=== PATIENT | female | born 1985 | race Caucasian/White ===

== ENCOUNTER 2022-10-19 16:30 | Inpatient (IN) ==
[2022-10-19] MEDS ORDERED: SODIUM CHLORIDE 0.9% 500 ML IV STA (16:37)
[2022-10-19] MEDS ORDERED: SODIUM CHLORIDE 0.9% 250 ML IV PRN (16:37)
[2022-10-19 16:51] LABS: iSTAT Creatinine 0.6 mg/dl (0.6-1.3); iSTAT Hemoglobin 7.8 g/dl (12.0-16.0); iSTAT Ionized Calcium 1.06 mmol/l (1.12-1.32); iSTAT Potassium 3.8 mmol/L (3.3-5.0)
[2022-10-19] MEDS ORDERED: CALCIUM GLUCONATE 1,000 MG/60 ML BAG IV STA (16:58)
--- NOTE | 2022-10-19 16:58 | Emergency Department Note ---
Impression & Plan Postoperative hemorrhagic shock, Status post cholecystectomy, Transaminitis, Leukocytosis ED Provider Note NAME: ANUEL JENKINS AGE: 37 SEX: F : 1985 ARRIVES VIA: Ambulance INFORMANT: Patient, ED PROVIDER(S): William Liang MD CHIEF COMPLAINT: Hypotension, tachycardia, abdominal pain MEDICAL DECISION MAKING: Patient presents due to concern of possible postoperative hemorrhage. The patient is pale tachycardic and hypotensive. I did perform a bedside FAST exam which was positive for fluid in the abdomen. The patient did have a remote history of pericardial effusion and when asked the patient states that she had recently seen cardiology and was told that there were no significant issues. The patient does have potentially trace pericardial effusion but certainly not tamponade physiology. Patient was ordered 2 units of uncrossed O- blood to be given immediately additional IV lines were placed. A Garcia was placed blood work was obtained IVs were established patient was ordered a small amount of IV fluids given the patient's tachycardia and hypotension prior to receiving her blood. Patient was ordered CT abdomen pelvis as well as CT angiography of the chest. I did immediately speak with on-call general surgeon Dr. George. He also did evaluate the patient. In consultation with him also did discuss case with on-call engraver wood Dr. Darnell. Patient's initial [id number] did show a hemoglobin of 7.8. Patient does have a white count of 19 likely reactive from surgery and bleeding. I do not believe that this is sepsis and believe that this is most likely from the patient's hemorrhage. Hemoglobin 8.2. I did review patient's most recent outpatient blood work from October 15 which showed hemoglobin 12.4. This is an acute change. Platelet count 189 kidney function is unremarkable. Patient does have mild transaminitis noted but this could be secondary to the patient's recent procedure. Glucose of 284. The patient is not DKA. Urinalysis does not show evidence of obvious infection. COVID-negative. I did speak with radiologist Dr. Pastrana with regard to the patient's imaging that was ordered. He did state that there was no obvious active extravasation but did notice the blood in the abdomen. CT angiography chest was negative. I did inform the patient of the findings as well as the patient's at bedside. I also did inform the general surgeon Dr. George about CAT scan I did discuss it with him. He would like the patient to be transfused but does not recommend taking the patient to the operating room at this time. I did convey this to the on-call hospitalist service as well as the engraver wood. I did speak the on-call hospitalist service EREN Ocampo and the patient was admitted by Dr. Velázquez to the intensive care unit who would also be under the care of Dr. Brewer. Critical Care: I have personally spent 90 minutes of critical care time in direct management of this patient. This includes bedside care, interpretation of diagnostic studies, and testing, discussion with consultants, patient, and family members, and other require inpatient management activities. This 90 minutes is in excess of all separately billable procedures. Procedures: Limited Point of Care FAST Ultrasound performed by me: Indication: Hypotension and tachycardia Findings: Limited cardiac ultrasonography via subxiphoid and parasternal long v iew showed cardiac wall motion activity, potentially trace pericardial effusion fluid but no tamponade. L Limited abdominal ultrasound revealed free fluid within the left upper quadrant as well as in the lower abdomen no obvious fluid noted in the right upper quadrant. Impression: Positive FAST exam Prior /Outside records reviewed: I did review the patient's most recent outpatient blood work completed October 15 which showed hemoglobin of 12.4 Differential diagnosis: Postoperative bleeding, hemorrhagic shock, sepsis, dehydration, PE, cardiogenic shock among others were considered Diagnostics, as interpreted by me: ECG: None Cardiac monitoring: An order was placed for continuous cardiac monitoring. The monitor shows a rate of 135 with tachycardic and regular rhythm. Patient was placed on pulse oximetry Medical decision rules: None Imaging studies: See below HPI: Patient presents from [facility] is a postop cholecystectomy completed by Dr. Mendoza earlier today due to concern for persistent hypotension and tachycardia. Patient states that she has had intermittent chest discomfort but does not complain of shortness of breath. The patient does have abdominal pain. The patient had received IV fluids prior to arrival but is not yet urinated. Patient does not take any blood thinning medications and no antiplatelets. The patient denies any falls or trauma. PAST MEDICAL HISTORY: See Below PAST SURGICAL HISTORY: See Below SOCIAL HISTORY: See Below HOME MEDICATIONS: See Below ALLERGIES: See Below VITALS: See Below PHYSICAL EXAMINATION: GENERAL: Ill in appearance, pale, moderate distress, wearing glasses EYE EXAM: Normal conjunctiva. PERRL, no anisocoria and EOM's grossly intact w/o pain. NECK: Supple, no nuchal rigidity, no adenopathy, non-tender. No signs of meningismus. FROM of the neck with good chin to chest and neck extension. No stridor. LUNGS: Clear to auscultation. Normal chest wall mechanics. HEART: Tachycardic and regular, no MRG. ABDOMEN: Postoperative lap sites covered with bandages, moderate diffuse discomfort throughout. BACK: No CVA TTP. SKIN: No rashes and no bruising. UPPER EXTREMITIES: Upper extremities are grossly normal. LOWER EXTREMITIES: Grossly normal, no edema. NEURO EXAM: A&O x3, cranial nerves II-XII grossly intact, normal speech, moves all 4 extremities. Past Med/Surg History Medical History Hypothyroidism Obesity Postoperative hemorrhage Surgical History H/O hernia repair H/O wisdom tooth extraction History of appendectomy Status post cholecystectomy Status post hysterectomy Social History Smoking Status: Never smoker Preferred Language: Cymro Feels Safe at Home: Yes Allergies Allergies Allergy/AdvReac Type Severity Reaction Status Date / Time [id number] Allergy Unknown NKDA Uncoded 04/25/15 21:02 Home Meds Home Medications Medication Instructions Recorded Confirmed levothyroxine 75 mcg tablet 75 mcg PO DAILY 10/19/22 10/19/22 liraglutide (weight loss) 3 mg/0.5 3 mg subcut DAILY 10/19/22 10/19/22 mL (18 mg/3 mL) subcut pen injector (Saxenda) omeprazole 40 mg capsule,delayed 40 mg PO HS 10/19/22 10/19/22 release Results & Data (ED) Vital Signs Vital Signs - 24 hr 10/19/22 16:38 10/19/22 16:44 10/19/22 16:45 Temperature 36.6 C Temperature Source Oral Pulse Rate 134 H Pulse Rate [Apical] 120 H Pulse Rate from SpO2 Sensor Respiratory Rate 20 20 Respiratory Effort / Characteristics Non-Labored Non-Labored Respiratory Depth Normal Normal Blood Pressure 117/74 Blood Pressure [Right Arm] 117/74 Blood Pressure Mean 88 Blood Pressure Mean [Right Arm] 88 Pulse Oximetry 100 99 99 Oxygen Delivery Method Room Air Room Air Room Air Oxygen Flow Rate Sepsis New/Unexplained Change in Mental Status No Sepsis Action Taken by Nursing No Action Required 10/19/22 16:36 10/19/22 16:38 10/19/22 17:11 Temperature 36.4 C L Temperature Source Oral Pulse Rate 130 H 132 H 150 H Pulse Rate [Apical] Pulse Rate from SpO2 Sensor 132 H Respiratory Rate 21 20 Respiratory Effort / Characteristics Respiratory Depth Blood Pressure 108/68 Blood Pressure [Right Arm] Blood Pressure Mean 81 Blood Pressure Mean [Right Arm] Pulse Oximetry 100 99 Oxygen Delivery Method Oxygen Flow Rate Sepsis New/Unexplained Change in Mental Status Sepsis Action Taken by Nursing 10/19/22 17:19 10/19/22 17:25 10/19/22 17:30 Temperature Temperature Source Pulse Rate 132 H 126 H 123 H Pulse Rate [Apical] Pulse Rate from SpO2 Sensor Respiratory Rate 20 18 18 Respiratory Effort / Characteristics Respiratory Depth Blood Pressure 97/57 L 97/57 L 113/80 Blood Pressure [Right Arm] Blood Pressure Mean 70 70 91 Blood Pressure Mean [Right Arm] Pulse Oximetry 92 95 95 Oxygen Delivery Method Oxygen Flow Rate 4 Sepsis New/Unexplained Change in Mental Status Sepsis Action Taken by Nursing 10/19/22 17:53 10/19/22 17:45 10/19/22 18:09 Temperature Temperature Source Pulse Rate 106 H 115 H Pulse Rate [Apical] 113 H Pulse Rate from SpO2 Sensor Respiratory Rate 18 18 18 Respiratory Effort / Characteristics Non-Labored Respiratory Depth Normal Blood Pressure 120/62 103/65 Blood Pressure [Right Arm] 120/62 Blood Pressure Mean 81 77 Blood Pressure Mean [Right Arm] 81 Pulse Oximetry 100 100 99 Oxygen Delivery Method Nasal Cannula Oxygen Flow Rate 4 4 Sepsis New/Unexplained Change in Mental Status Sepsis Action Taken by Nursing 10/19/22 18:20 10/19/22 18:29 Temperature Temperature Source Pulse Rate 116 H 105 H Pulse Rate [Apical] Pulse Rate from SpO2 Sensor Respiratory Rate 18 18 Respiratory Effort / Characteristics Respiratory Depth Blood Pressure 102/65 110/59 L Blood Pressure [Right Arm] Blood Pressure Mean 77 76 Blood Pressure Mean [Right Arm] Pulse Oximetry 99 99 Oxygen Delivery Method Oxygen Flow Rate 2 Sepsis New/Unexplained Change in Mental Status Sepsis Action Taken by Care Home Medications Current Medication List: was personally reviewed by ga Laboratory Data Attestation: I reviewed the patient's lab results. 10/19/22 16:35 10/19/22 16:35 Lab Results 10/19/22 10/19/22 10/19/22 Range/Units 16:35 16:35 16:35 WBC 19.66 H (4.8-10.8) K/ul RBC 2.62 L (4.20-5.40) M/uL Hgb 8.2 L (12.0-16.0) g/dl POC Hgb (12.0-16.0) g/dl Hct 25.0 L (37.0-47.0) % POC Hct (37-47) % MCV 95.4 (80.0-100.0) fL MCH 31.3 (25.0-34.0) pg MCHC 32.8 (32.0-36.0) g/dL RDW Std Deviation 47.6 H (36.4-46.3) fL RDW Coeff of Nicky 13.8 (11.5-14.5) % Plt Count 189 (130-400) K/uL MPV 9.5 (9.4-12.4) fL Immature Gran % (Auto) 0.6 % Neut % (Auto) 89.6 % Lymph % (Auto) 5.1 % Camp % (Auto) 4.5 % Eos % (Auto) 0.1 % Baso % (Auto) 0.1 % Neut # (Auto) 17.63 H (1.40-6.50) K/uL Lymph # (Auto) 1.01 L (1.2-3.4) K/uL Camp # (Auto) 0.88 H (0.11-0.59) K/uL Eos # (Auto) 0.01 (0-0.50) K/uL Baso # (Auto) 0.02 (0-0.2) K/uL Immature Gran # (Auto) 0.11 (0.01-0.20) K/uL PT 11.1 (9.0-12.0) Seconds INR 1.0 (0.9-1.1) APTT 23.1 (21.0-31.0) Seconds PTT Ratio 0.8 Fibrinogen 261 (184-400) mg/dl POC Sodium (135-144) mmol/L Sodium 136 (136-145) mmol/L POC Potassium (3.3-5.0) mmol/L Potassium 3.8 (3.5-5.1) mmol/L POC Chloride (101-112) mmol/L Chloride 106 (98-107) mmol/L Carbon Dioxide 24 (21-32) mmol/L POC Total CO2 (24-31) mmol/L Anion Gap 6 (3-11) POC Anion Gap (16-25) mmol/L POC BUN (7-18) mg/dl BUN 11 (6-23) mg/dl Creatinine 0.74 (0.6-1.2) mg/dl POC Creatinine (0.6-1.3) mg/dl Est Cr Clr Drug Dosing Not Reportable Est GFR ( Amer) 120.8 ml/min Est GFR (Non-Af Amer) 104.2 ml/min BUN/Creatinine Ratio 14.9 (10-20) Glucose 284 H (70-99(Fasting)) mg/dl POC Glucose (other) (70-99) mg/dl Calcium 7.3 L (8.5-10.1) mg/dl POC Ioniz Calcium Micky (1.12-1.32) mmol/l Total Bilirubin 0.4 (0.2-1.0) mg/dl AST 72 H (13-39) U/L ALT 212 H (7-52) U/L Alkaline Phosphatase 153 H (34-104) U/L Troponin I High Sens 5.4 (0-14) pg/ml Total Protein 4.8 L (6.0-8.3) gm/dl Albumin 3.2 L (3.4-5.0) gm/dl Globulin 1.6 L (2.5-4.0) gm/dl Albumin/Globulin Ratio 2.0 (0.9-2) Lipase 14 (11-82) U/L Urine Color Urine Appearance (Clear) Urine pH (4.5-7.5) Ur Specific Gays (1.000-1.030) Urine Protein (Negative) Urine Glucose (UA) (Negative) Urine Ketones (Negative) Urine Blood (Negative) Urine Nitrite (Negative) Urine Bilirubin (Negative) Urine Urobilinogen (Negative) Ur Leukocyte Esterase (Negative) SARS-CoV-2, RNA, NAAT (NEGATIVE) Blood Type Antibody Screen Crossmatch 10/19/22 10/19/22 10/19/22 Range/Units 16:39 16:47 16:47 WBC (4.8-10.8) K/ul RBC (4.20-5.40) M/uL Hgb (12.0-16.0) g/dl POC Hgb 7.8 L (12.0-16.0) g/dl Hct (37.0-47.0) % POC Hct 23 L (37-47) % MCV (80.0-100.0) fL MCH (25.0-34.0) pg MCHC (32.0-36.0) g/dL RDW Std Deviation (36.4-46.3) fL RDW Coeff of Nicky (11.5-14.5) % Plt Count (130-400) K/uL MPV (9.4-12.4) fL Immature Gran % (Auto) % Neut % (Auto) % Lymph % (Auto) % Camp % (Auto) % Eos % (Auto) % Baso % (Auto) % Neut # (Auto) (1.40-6.50) K/uL Lymph # (Auto) (1.2-3.4) K/uL Camp # (Auto) (0.11-0.59) K/uL Eos # (Auto) (0-0.50) K/uL Baso # (Auto) (0-0.2) K/uL Immature Gran # (Auto) (0.01-0.20) K/uL PT (9.0-12.0) Seconds INR (0.9-1.1) APTT (21.0-31.0) Seconds PTT Ratio Fibrinogen (184-400) mg/dl POC Sodium 138 (135-144) mmol/L Sodium (136-145) mmol/L POC Potassium 3.8 (3.3-5.0) mmol/L Potassium (3.5-5.1) mmol/L POC Chloride 101 (101-112) mmol/L Chloride (98-107) mmol/L Carbon Dioxide (21-32) mmol/L POC Total CO2 21 L (24-31) mmol/L Anion Gap (3-11) POC Anion Gap 20.0 (16-25) mmol/L POC BUN 9 (7-18) mg/dl BUN (6-23) mg/dl Creatinine (0.6-1.2) mg/dl POC Creatinine 0.6 (0.6-1.3) mg/dl Est Cr Clr Drug Dosing Est GFR ( Amer) ml/min Est GFR (Non-Af Amer) ml/min BUN/Creatinine Ratio (10-20) Glucose (70-99(Fasting)) mg/dl POC Glucose (other) 266 H (70-99) mg/dl Calcium (8.5-10.1) mg/dl POC Ioniz Calcium Micky 1.06 L (1.12-1.32) mmol/l Total Bilirubin (0.2-1.0) mg/dl AST (13-39) U/L ALT (7-52) U/L Alkaline Phosphatase (34-104) U/L Troponin I High Sens (0-14) pg/ml Total Protein (6.0-8.3) gm/dl Albumin (3.4-5.0) gm/dl Globulin (2.5-4.0) gm/dl Albumin/Globulin Ratio (0.9-2) Lipase (11-82) U/L Urine Color Yellow Urine Appearance Clear (Clear) Urine pH 5.0 (4.5-7.5) Ur Specific Gays 1.034 H (1.000-1.030) Urine Protein Negative (Negative) Urine Glucose (UA) 3+ H (Negative) Urine Ketones 2+ H (Negative) Urine Blood Negative (Negative) Urine Nitrite Negative (Negative) Urine Bilirubin Negative (Negative) Urine Urobilinogen Negative (Negative) Ur Leukocyte Esterase Negative (Negative) SARS-CoV-2, RNA, NAAT NEGATIVE (NEGATIVE) Blood Type Antibody Screen Crossmatch 10/19/22 Range/Units 16:56 WBC (4.8-10.8) K/ul RBC (4.20-5.40) M/uL Hgb (12.0-16.0) g/dl POC Hgb (12.0-16.0) g/dl Hct (37.0-47.0) % POC Hct (37-47) % MCV (80.0-100.0) fL MCH (25.0-34.0) pg MCHC (32.0-36.0) g/dL RDW Std Deviation (36.4-46.3) fL RDW Coeff of Nicky (11.5-14.5) % Plt Count (130-400) K/uL MPV (9.4-12.4) fL Immature Gran % (Auto) % Neut % (Auto) % Lymph % (Auto) % Camp % (Auto) % Eos % (Auto) % Baso % (Auto) % Neut # (Auto) (1.40-6.50) K/uL Lymph # (Auto) (1.2-3.4) K/uL Camp # (Auto) (0.11-0.59) K/uL Eos # (Auto) (0-0.50) K/uL Baso # (Auto) (0-0.2) K/uL Immature Gran # (Auto) (0.01-0.20) K/uL PT (9.0-12.0) Seconds INR (0.9-1.1) APTT (21.0-31.0) Seconds PTT Ratio Fibrinogen (184-400) mg/dl POC Sodium (135-144) mmol/L Sodium (136-145) mmol/L POC Potassium (3.3-5.0) mmol/L Potassium (3.5-5.1) mmol/L POC Chloride (101-112) mmol/L Chloride (98-107) mmol/L Carbon Dioxide (21-32) mmol/L POC Total CO2 (24-31) mmol/L Anion Gap (3-11) POC Anion Gap (16-25) mmol/L POC BUN (7-18) mg/dl BUN (6-23) mg/dl Creatinine (0.6-1.2) mg/dl POC Creatinine (0.6-1.3) mg/dl Est Cr Clr Drug Dosing Est GFR ( Amer) ml/min Est GFR (Non-Af Amer) ml/min BUN/Creatinine Ratio (10-20) Glucose (70-99(Fasting)) mg/dl POC Glucose (other) (70-99) mg/dl Calcium (8.5-10.1) mg/dl POC Ioniz Calcium Micky (1.12-1.32) mmol/l Total Bilirubin (0.2-1.0) mg/dl AST (13-39) U/L ALT (7-52) U/L Alkaline Phosphatase (34-104) U/L Troponin I High Sens (0-14) pg/ml Total Protein (6.0-8.3) gm/dl Albumin (3.4-5.0) gm/dl Globulin (2.5-4.0) gm/dl Albumin/Globulin Ratio (0.9-2) Lipase (11-82) U/L Urine Color Urine Appearance (Clear) Urine pH (4.5-7.5) Ur Specific Gays (1.000-1.030) Urine Protein (Negative) Urine Glucose (UA) (Negative) Urine Ketones (Negative) Urine Blood (Negative) Urine Nitrite (Negative) Urine Bilirubin (Negative) Urine Urobilinogen (Negative) Ur Leukocyte Esterase (Negative) SARS-CoV-2, RNA, NAAT (NEGATIVE) Blood Type O Positive Antibody Screen NEGATIVE Crossmatch See Detail Administered Medications Discontinued Medications Sodium Chloride (Nss) 500 mls @ 999 mls/hr IV .Q31M STA Stop: 10/19/22 17:07 Last Infusion: 10/19/22 17:32 Dose: 0 mls/hr Documented By: Admin: 10/19/22 16:47 Dose: 999 mls/hr Documented By: MARION Calcium Gluconate () 1,000 mg in 60 mls @ 240 mls/hr IV ONE STA Stop: 10/19/22 17:12 Last Infusion: 10/19/22 17:53 Dose: 0 mls/hr Documented By: Admin: 10/19/22 17:32 Dose: 240 mls/hr Documented By: MARION Ioversol (Optiray 320 500ml) 114 ml IV ONCE ONE Stop: 10/19/22 17:01 Last Admin: 10/19/22 17:02 Dose: 114 ml Documented By: KIKO Imaging Data Radiologist's Impression: Abdomen/Pelvis CT 10/19/22 16:37 CT ANGIOGRAM OF THE CHEST; CT SCAN OF THE ABDOMEN AND PELVIS WITH IV CONTRAST CLINICAL HISTORY: Hypotension and tachycardia status post cholecystectomy. Generalized abdominal pain. COMPARISON STUDY: Abdominal CT dated 04/25/2015. TECHNIQUE: Following the IV administration of 114 of Optiray 320, CT angiogram of the chest is performed from the upper abdomen to the thoracic inlet utilizing the pulmonary embolus protocol. Images are reviewed in the axial, sagittal, coronal planes. 3-D MIPS images are created and assessed. Subsequently, CT scan of the abdomen and pelvis was performed from the lung bases to the proximal femora. Images are reviewed in the axial, sagittal, and coronal planes. IV contrast was administered without complication. A dose lowering technique was utilized adhering to the principles of ALARA. CT DOSE: 1215.03 mGy.cm FINDINGS: CHEST: Thyroid: Imaged portions of the thyroid gland are normal in size and attenuation. Thoracic aorta: The thoracic aorta is normal in caliber and demonstrates 4- vessel variant arch anatomy. No dissection is seen. Pulmonary vasculature: The pulmonary trunk is normal in caliber. There are no filling defects identified in the main, lobar, or segmental pulmonary arteries to indicate pulmonary embolus. Heart: The heart is normal in size noting trace pericardial effusion. Lungs and pleural spaces: Dependent segmental atelectasis is seen bilaterally. There is no airspace consolidation typical for pneumonia or pleural effusion. The trachea and central airways are clear. Mediastinum: There is no mediastinal lymphadenopathy. Bobbi: Clear. Axillae: There is no axillary lymphadenopathy. Bony thorax: No lytic or blastic lesions are identified. ABDOMEN AND PELVIS: Liver: The contrast-enhanced liver is normal in size, contour, and attenuation. There is no intrahepatic or ductal dilatation. The hepatic veins and portal veins are patent. Gallbladder: The gallbladder is surgically absent with clips in the gallbladder fossa. There is a large complex hyperdense fluid collection containing foci of gas located in the gallbladder fossa. This measures approximately 9 x 9 x 6 cm and likely represents a large hematoma. No active extravasation is definitively identified. Spleen: Normal in size and attenuation. Pancreas: Unremarkable. Adrenal glands: Unremarkable. Kidneys: The contrast enhanced kidneys are normal in size and without hydronephrosis. The kidneys enhance symmetrically. Abdominal vasculature: The abdominal aorta is normal in course and caliber noting scattered foci of atherosclerotic calcification. Bowel: The small bowel and colon are normal in course and caliber. The appendix is surgically absent. Peritoneum: Numerous small foci of intraperitoneal free air are nonspecific and likely related to recent surgery. There is evidence of previous ventral hernia repair. There is a moderate to large volume of hemoperitoneum. Hyperdense blood products are identified around the liver, and are hyperdense blood products with a hematocrit level seen in the pelvis. Induration an tiny foci of gas within the abdominal wall is likely related to recent surgery. Lymphadenopathy: None. Pelvic viscera: The bladder is decompressed around a Garcia catheter and not well evaluated. The uterus is surgically absent. No adnexal lesion is seen. Skeletal structures: No lytic or blastic lesions are seen. Sclerotic change is noted in the sacroiliac joints. IMPRESSION: 1. There is no evidence of pulmonary embolus in the main, lobar, or segmental pulmonary arteries. 2. Dependent segmental atelectasis is seen at both lung bases. There is no airspace consolidation typical for pneumonia or pleural effusion identified. 3. The gallbladder is surgically absent, and a large complex/hyperdense collection in the gallbladder fossa likely represents a hematoma. 4. No active extravasation is clearly identified at the time of examination. 5. Moderate to large volume of hemoperitoneum in the abdomen and pelvis. 6. Numerous foci of intraperitoneal free air are likely related to recent surgery. 7. Additional findings as above. ACT 112: Negative or not required by law. Electronically signed by: Alberto Pastrana M.D. 10/19/2022 5:34 PM Chest CTA 10/19/22 16:38 CT ANGIOGRAM OF THE CHEST; CT SCAN OF THE ABDOMEN AND PELVIS WITH IV CONTRAST CLINICAL HISTORY: Hypotension and tachycardia status post cholecystectomy. Generalized abdominal pain. COMPARISON STUDY: Abdominal CT dated 04/25/2015. TECHNIQUE: Following the IV administration of 114 of Optiray 320, CT angiogram of the chest is performed from the upper abdomen to the thoracic inlet utilizing the pulmonary embolus protocol. Images are reviewed in the axial, sagittal, cor onal planes. 3-D MIPS images are created and assessed. Subsequently, CT scan of the abdomen and pelvis was performed from the lung bases to the proximal femora. Images are reviewed in the axial, sagittal, and coronal planes. IV contrast was administered without complication. A dose lowering technique was utilized adhering to the principles of ALARA. CT DOSE: 1215.03 mGy.cm FINDINGS: CHEST: Thyroid: Imaged portions of the thyroid gland are normal in size and attenuation. Thoracic aorta: The thoracic aorta is normal in caliber and demonstrates 4- vessel variant arch anatomy. No dissection is seen. Pulmonary vasculature: The pulmonary trunk is normal in caliber. There are no filling defects identified in the main, lobar, or segmental pulmonary arteries to indicate pulmonary embolus. Heart: The heart is normal in size noting trace pericardial effusion. Lungs and pleural spaces: Dependent segmental atelectasis is seen bilaterally. There is no airspace consolidation typical for pneumonia or pleural effusion. The trachea and central airways are clear. Mediastinum: There is no mediastinal lymphadenopathy. Bobbi: Clear. Axillae: There is no axillary lymphadenopathy. Bony thorax: No lytic or blastic lesions are identified. ABDOMEN AND PELVIS: Liver: The contrast-enhanced liver is normal in size, contour, and attenuation. There is no intrahepatic or ductal dilatation. The hepatic veins and portal veins are patent. Gallbladder: The gallbladder is surgically absent with clips in the gallbladder fossa. There is a large complex hyperdense fluid collection containing foci of gas located in the gallbladder fossa. This measures approximately 9 x 9 x 6 cm and likely represents a large hematoma. No active extravasation is definitively identified. Spleen: Normal in size and attenuation. Pancreas: Unremarkable. Adrenal glands: Unremarkable. Kidneys: The contrast enhanced kidneys are normal in size and without hydronephrosis. The kidneys enhance symmetrically. Abdominal vasculature: The abdominal aorta is normal in course and caliber noting scattered foci of atherosclerotic calcification. Bowel: The small bowel and colon are normal in course and caliber. The appendix is surgically absent. Peritoneum: Numerous small foci of intraperitoneal free air are nonspecific and likely related to recent surgery. There is evidence of previous ventral hernia repair. There is a moderate to large volume of hemoperitoneum. Hyperdense blood products are identified around the liver, and are hyperdense blood products with a hematocrit level seen in the pelvis. Induration an tiny foci of gas within the abdominal wall is likely related to recent surgery. Lymphadenopathy: None. Pelvic viscera: The bladder is decompressed around a Garcia catheter and not well evaluated. The uterus is surgically absent. No adnexal lesion is seen. Skeletal structures: No lytic or blastic lesions are seen. Sclerotic change is noted in the sacroiliac joints. IMPRESSION: 1. There is no evidence of pulmonary embolus in the main, lobar, or segmental pulmonary arteries. 2. Dependent segmental atelectasis is seen at both lung bases. There is no airspace consolidation typical for pneumonia or pleural effusion identified. 3. The gallbladder is surgically absent, and a large complex/hyperdense collection in the gallbladder fossa likely represents a hematoma. 4. No active extravasation is clearly identified at the time of examination. 5. Moderate to large volume of hemoperitoneum in the abdomen and pelvis. 6. Numerous foci of intraperitoneal free air are likely related to recent surgery. 7. Additional findings as above. ACT 112: Negative or not required by law. Electronically signed by: Alberto Pastrana M.D. 10/19/2022 5:34 PM Discharge Plan Visit Data Chief Complaint: Abdominal Pain Stated Complaint: SURGERY, TACHY, HYPOTENSIVE ED Provider: William Liang Discharge Problem: Postoperative hemorrhagic shock, Status post cholecystectomy, Transaminitis, Leukocytosis Patient Disposition: Admitted As Inpatient Discharge Instructions Interventions: ED Discharge Assessment Last Done: 10/19/22 18:36 Prescriptions Prescriptions: No Action omeprazole 40 mg capsule,delayed release(DR/EC) 40 mg PO HS levothyroxine 75 mcg Tablet 75 mcg PO DAILY Saxenda 3 mg/0.5 mL (18 mg/3 mL) pen injector 3 mg SUBCUT DAILY Referrals Referrals: Jairon Quintanilla DO [Primary Care Provider] -
[2022-10-19] MEDS ORDERED: OPTIRAY 320 500ml IV ONE (17:00)
[2022-10-19 17:03] LABS: Basophils # (auto) 0.02 K/uL (0-0.2); Basophils % (auto) 0.1 %; Eosinophils # (auto) 0.01 K/uL (0-0.50); Eosinophils % (auto) 0.1 %; Hemoglobin 8.2 g/dl (12.0-16.0); Immature Granulocytes # (auto) 0.11 K/uL (0.01-0.20); Immature Granulocytes % (auto) 0.6 %; Lymphocytes # (auto) 1.01 K/uL (1.2-3.4); Lymphocytes % (auto) 5.1 %; Mean Corpuscular Hemoglobin 31.3 pg (25.0-34.0); Mean Corpuscular Hgb Conc 32.8 g/dL (32.0-36.0); Mean Corpuscular Volume 95.4 fL (80.0-100.0); Mean Platelet Volume 9.5 fL (9.4-12.4); Monocytes # (auto) 0.88 K/uL (0.11-0.59); Monocytes % (auto) 4.5 %; Neutrophils # (auto) 17.63 K/uL (1.40-6.50); Neutrophils % (auto) 89.6 %; Platelet Count 189 K/uL (130-400); RDW Coefficient of Variation 13.8 % (11.5-14.5); RDW Standard Deviation 47.6 fL (36.4-46.3); Red Blood Count 2.62 M/uL (4.20-5.40); White Blood Count 19.66 K/ul (4.8-10.8)
[2022-10-19 17:11] LABS: Alanine Aminotransferase 212 U/L (7-52); Albumin Level 3.2 gm/dl (3.4-5.0); Alkaline Phosphatase 153 U/L (34-104); Anion Gap 6 (3-11); Aspartate Aminotransferase 72 U/L (13-39); BUN Creatinine Ratio 14.9 (10-20); Bilirubin,Total 0.4 mg/dl (0.2-1.0); Blood Urea Nitrogen 11 mg/dl (6-23); Calcium 7.3 mg/dl (8.5-10.1); Carbon Dioxide 24 mmol/L (21-32); Chloride 106 mmol/L (98-107); Est GFR (African American) 120.8 ml/min; Est GFR (Non-African American) 104.2 ml/min; Globulin 1.6 gm/dl (2.5-4.0); Glucose 284 mg/dl (70-99(Fasting)); Lipase 14 U/L (11-82); Potassium 3.8 mmol/L (3.5-5.1); Sodium 136 mmol/L (136-145); Total Protein 4.8 gm/dl (6.0-8.3)
[2022-10-19 17:13] LABS: Appearance Urine Clear (Clear); Bilirubin Urine Negative (Negative); Blood Urine Negative (Negative); Color Urine Yellow; Glucose Urine UA 3+ (Negative); Ketones Urine 2+ (Negative); Leukocyte Esterase Urine Negative (Negative); Nitrite Urine Negative (Negative); Protein Urine Negative (Negative); Specific Gravity Urine 1.034 (1.000-1.030); Urobilinogen Urine Negative (Negative)
[2022-10-19 17:18] LABS: Troponin I High Sensitivity 5.4 pg/ml (0-14)
--- NOTE | 2022-10-19 17:36 | CT Scan Report ---
CT ANGIOGRAM OF THE CHEST; CT SCAN OF THE ABDOMEN AND PELVIS WITH IV CONTRAST CLINICAL HISTORY: Hypotension and tachycardia status post cholecystectomy. Generalized abdominal pain . COMPARISON STUDY: Abdominal CT dated 04/25/2015. TECHNIQUE: Following the IV administration of 114 of Optiray 320, CT angiogram of the chest is perfor med from the upper abdomen to the thoracic inlet utilizing the pulmonary embolus protocol. Images are reviewed in the axial, sagittal, coronal planes. 3-D MIPS images are created and assessed. Subsequen tly, CT scan of the abdomen and pelvis was performed from the lung bases to the proximal femora. Imag es are reviewed in the axial, sagittal, and coronal planes. IV contrast was administered without comp lication. A dose lowering technique was utilized adhering to the principles of ALARA. CT DOSE: 1215.03 mGy.cm FINDINGS: CHEST: Thyroid: Imaged portions of the thyroid gland are normal in size and attenuation. Thoracic aorta: The thoracic aorta is normal in caliber and demonstrates 4-vessel variant arch anatom y. No dissection is seen. Pulmonary vasculature: The pulmonary trunk is normal in caliber. There are no filling defects identif ied in the main, lobar, or segmental pulmonary arteries to indicate pulmonary embolus. Heart: The heart is normal in size noting trace pericardial effusion. Lungs and pleural spaces: Dependent segmental atelectasis is seen bilaterally. There is no airspace c onsolidation typical for pneumonia or pleural effusion. The trachea and central airways are clear. Mediastinum: There is no mediastinal lymphadenopathy. Bobbi: Clear. Axillae: There is no axillary lymphadenopathy. Bony thorax: No lytic or blastic lesions are identified. ABDOMEN AND PELVIS: Liver: The contrast-enhanced liver is normal in size, contour, and attenuation. There is no intrahepa tic or ductal dilatation. The hepatic veins and portal veins are patent. Gallbladder: The gallbladder is surgically absent with clips in the gallbladder fossa. There is a lar ge complex hyperdense fluid collection containing foci of gas located in the gallbladder fossa. This measures approximately 9 x 9 x 6 cm and likely represents a large hematoma. No active extravasation i s definitively identified. Spleen: Normal in size and attenuation. Pancreas: Unremarkable. Adrenal glands: Unremarkable. Kidneys: The contrast enhanced kidneys are normal in size and without hydronephrosis. The kidneys enh ance symmetrically. Abdominal vasculature: The abdominal aorta is normal in course and caliber noting scattered foci of a therosclerotic calcification. Bowel: The small bowel and colon are normal in course and caliber. The appendix is surgically absent . Peritoneum: Numerous small foci of intraperitoneal free air are nonspecific and likely related to rec ent surgery. There is evidence of previous ventral hernia repair. There is a moderate to large volume of hemoperitoneum. Hyperdense blood products are identified around the liver, and are hyperdense blo od products with a hematocrit level seen in the pelvis. Induration an tiny foci of gas within the abd ominal wall is likely related to recent surgery. Lymphadenopathy: None. Pelvic viscera: The bladder is decompressed around a Garcia catheter and not well evaluated. The uteru s is surgically absent. No adnexal lesion is seen. Skeletal structures: No lytic or blastic lesions are seen. Sclerotic change is noted in the sacroilia c joints. IMPRESSION: 1. There is no evidence of pulmonary embolus in the main, lobar, or segmental pulmonary arteries. 2. Dependent segmental atelectasis is seen at both lung bases. There is no airspace consolidation typ ical for pneumonia or pleural effusion identified. 3. The gallbladder is surgically absent, and a large complex/hyperdense collection in the gallbladder fossa likely represents a hematoma. 4. No active extravasation is clearly identified at the time of examination. 5. Moderate to large volume of hemoperitoneum in the abdomen and pelvis. 6. Numerous foci of intraperitoneal free air are likely related to recent surgery. 7. Additional findings as above. ACT 112: Negative or not required by law. Electronically signed by: Alberto Pastrana M.D. 10/19/2022 5:34 PM
--- NOTE | 2022-10-19 17:48 | Critical Care Consultation ---
Date of Consultation October 19, 2022 Assessment & Plan (1) Status post cholecystectomy: (2) Postoperative hemorrhage: (3) Obesity: Plan 37-year-old female with a history of hypothyroidism and obesity presenting to the ER after undergoing a laparoscopic cholecystectomy today. She has evidence of postoperative hemorrhage based on CT of her abdomen and pelvis. There is not appear to be active extravasation. Neurologic: No significant issues at present. Mildly anxious. Pain control per primary team. Pulmonary: No acute issues at this time. Mild atelectasis postoperatively noted on CT chest. No evidence of pulmonary embolism. Cardiovascular: Sinus tachycardia present secondary to acute hemorrhage. Low threshold for placing central venous large-bore catheter if evidence of further bleeding. Gastrointestinal: Postop day 0 status post cholecystectomy. Acute hemoperitoneum noted on CT abdomen and pelvis. Fortunately no evidence of significant active extravasation on CTA. NPO. General surgery following. Renal: Monitor for intra-abdominal hypertension and renal failure. Garcia catheter in place. Infectious disease: Low threshold for starting IV antibiotics. Hematologic: Patient with evidence of acute hemoperitoneum. Check for coagulopathy. Infused 2 units packed RBCs now. Status post 1 unit calcium gluconate. Repeat CBC status post blood transfusion. Endocrine: History of hypothyroidism. Restart levothyroxine when able to take p.o. Maintain glucose less than 180. Lines and tubes: Two 18-gauge IVs and one 20-gauge IV. Garcia catheter in place. VTE prophylaxis: SCDs CODE STATUS: Full Family at bedside: updated at bedside Disposition: ICU. Patient discussed with ER physician, bedside ER nurse and general surgeon on-call. I have personally spent 47 minutes of critical care time in the direct management of this patient. This is a life/limb threatening event. This includes time spent evaluating patient, direct bedside care, chart review, placing orders, interpretation of diagnostic studies, discussion with consultants, larissa jhaveri, and family members, as well as other required patient management activities. This time is exclusive of all separately billable procedures, and teaching time and separate from and in addition to any other critical care service time. Thank you for allowing us to participate in the care of this patient. History of Present Illness Reason for Consultation: Acute intra-abdominal hemorrhage postoperatively History of Present Illness 37-year-old female with a history of obesity, hypothyroidism and hysterectomy who presented today for an elective laparoscopic cholecystectomy at [facility]. Postoperatively she developed hypotension and received 2 L of fluid. She was sent over to [facility] via EMS for further evaluation. She received a CT of her abdomen and pelvis which revealed a moderate to large volume of hemoperitoneum in the abdomen and pelvis. CT chest also revealed subsegmental atelectasis. Patient is currently having rigors. She has moderate abdominal pain. She denies any nausea or vomiting. Her is at bedside. She is currently receiving 1 unit of packed RBCs. She has received 500 mL of fluid in the ER and 1 g of calcium gluconate. Her is at bedside. She has a remote history of tobacco abuse. Allergies Allergy/AdvReac Type Severity Reaction Status Date / Time [id number] Allergy Unknown NKDA Uncoded 04/25/15 21:02 Home Medications Medication Instructions Recorded Confirmed Type Acetaminophen (Tylenol) 650 mg PO PRN ##0 10/24/11 History Ibuprofen (Motrin) 800 mg PO Q8HR PRN ##0 10/24/11 History Patient History Medical History (Updated 10/19/22 @ 17:41 by Brooks Brewer MD) Obesity Postoperative hemorrhage Surgical History (Updated 10/19/22 @ 17:41 by Brooks Brewer MD) Status post cholecystectomy Social History Smoking Status: Never smoker Preferred Language: Romanian Feels Safe at Home: Yes Review of Systems Review of Systems: All systems reviewed & are unremarkable except as noted in HPI & below Physical Exam Physical Exam: Constitutional: Obese appearing female in moderate distress. Currently experiencing rigors. Eyes: Pupils are equal round and reactive to light. Conjunctivae are normal. Anicteric sclera. Ears nose, mouth and throat: Mallampati class 2. Normal posterior oropharynx. Uvula is midline. Neck: Trachea is midline. Visual inspection is normal. Respiratory: Clear to auscultation bilaterally. No use of accessory muscles. No significant clubbing noted. Cardiovascular: Regular rate and rhythm. No murmurs. No edema. Gastrointestinal: Distended abdomen that is tender with rebound. Bandaging noted over laparoscopic incision sites. Musculoskeletal: No cyanosis. Patient is able to move all extremities. Strength is 5 out of 5 in the upper and lower extremities. Skin: No rashes, warm dry and intact. Neurologic: No obvious focal neurological deficits seen. Psychiatric: Alert and oriented x3 with a euthymic affect. Results & Data Results & Data ([facility]) Vital Signs (Past 12 Hours) Vital Signs Temp Pulse Pulse Resp BP BP Pulse Ox 10/19/22 17:25 126 H 18 97/57 L 95 10/19/22 17:19 132 H 20 97/57 L 92 10/19/22 17:11 36.4 C L 150 H 20 108/68 99 10/19/22 16:38 132 H 10/19/22 16:36 130 H 21 100 10/19/22 16:45 120 H 20 117/74 99 10/19/22 16:44 99 10/19/22 16:38 36.6 C 134 H 20 117/74 100 O2 Del Method 10/19/22 17:25 10/19/22 17:19 10/19/22 17:11 10/19/22 16:38 10/19/22 16:36 10/19/22 16:45 Room Air 10/19/22 16:44 Room Air 10/19/22 16:38 Room Air Coding Level of Care Code 07083 CRITICAL CARE 1ST 30-74M Diagnoses Status post cholecystectomy Z90.49 Postoperative hemorrhage Obesity E66.9 Time Spent (min) 47
--- NOTE | 2022-10-19 18:27 | History & Physical Report ---
Date of Service October 19, 2022 Assessment & Plan (1) Postoperative hemorrhagic shock: (2) Status post cholecystectomy: Plan: Admit to ICU Patient sent to ED from [facility] after laparoscopic cholecystectomy. In PACU, patient developed worsening abdominal distention, hypotension, tachycardia. In the ED, positive FAST exam and CT ABD/pelvis showing moderate to large volume of hemoperitoneum in the abdomen and pelvis without active extravasation. hgb 8.2 (12.4 on 10/15/2022) Hypotensive with systolic BP in the 90s, tachycardia. BP improving with PRBC transfusion. Patient typed and crossed for 4 unit PRBC, 2 units ordered to be transfused. Bookkeeper Receptionist and general surgery have evaluated the patient in the ED. (3) Leukocytosis: Plan: WBC 19 K, likely reactive due to surgery/active bleeding No indication to start antibiotics at this time Monitor CBC (4) Elevated LFTs: Plan: T. bili 0.4, AST 72, ALT 212, alk phos 153 Likely reactive due to recent cholecystectomy Monitor LFTs (5) Hyperglycemia: Plan: Glucose 284, no history of diabetes May be reactive, check A1c with a.m. labs (6) Hypothyroidism: Plan: Continue home dose levothyroxine DVT PROPHYLAXIS SCDs due to active postop bleeding I spent a total of 60 minutes coordinating, documenting, and providing care for this patient excluding time spent in the performance of separately billed services. This included personally reviewing all current laboratories and imaging studies, medication reconciliation, outpatient chart review, and discussion with specialists. History of Present Illness Chief Complaint: Abdominal pain, low BP Primary Care Provider: Jairon Quintanilla DO 37-year-old female with PMH hypothyroidism, obesity, GERD, migraines, and other problems listed below who presents to the ED from [facility] for evaluation of abdominal pain, hypotension, tachycardia. History obtained by Dr. Orozco and my personal review of ou tpatient PCP records. Patient is s/p elective laparoscopic cholecystectomy today. In PACU, patient was noted to have increasing abdominal distention, hypotension, and tachycardia. Upon arrival to the ED, patient was hypotensive with systolic BPs in the 90s, and tachycardic. Positive FAST exam and CT ABD/pelvis showing moderate to large volume of hemoperitoneum in the abdomen and pelvis without active extravasation. Patient was typed and crossed for 4 units of blood and is currently receiving 2 units. Patient has been evaluated by home health care social worker and general surgery. Labs show Hgb 8.2, WBC 19 K, glucose 284, AST 72, ALT 212, alk phos 153. Allergies Allergy/AdvReac Type Severity Reaction Status Date / Time [id number] Allergy Unknown NKDA Uncoded 04/25/15 21:02 Home Medications Medication Instructions Recorded Confirmed Type levothyroxine 75 mcg tablet 75 mcg PO DAILY 10/19/22 10/19/22 History liraglutide (weight loss) 3 mg/0.5 3 mg subcut DAILY 10/19/22 10/19/22 History mL (18 mg/3 mL) subcut pen injector (Saxenda) omeprazole 40 mg capsule,delayed 40 mg PO HS 10/19/22 10/19/22 History release Past Med/Surg History Medical History Hypothyroidism Obesity Postoperative hemorrhage Surgical History H/O hernia repair H/O wisdom tooth extraction History of appendectomy Status post cholecystectomy Status post hysterectomy Social History Smoking Status: Never smoker Preferred Language: Wolof Feels Safe at Home: Yes Review of Systems Review of Systems: ROS per HPI, all other systems reviewed and negative Physical Exam Physical Exam: please refer to Dr. Velázquez's addendum for physical exam Results & Data Results & Data ([facility]) Vital Signs (Past 12 Hours) Vital Signs Temp Pulse Pulse Resp BP BP Pulse Ox 10/19/22 18:20 116 H 18 102/65 99 10/19/22 18:09 115 H 18 103/65 99 10/19/22 17:45 106 H 18 120/62 100 10/19/22 17:53 113 H 18 120/62 100 10/19/22 17:30 123 H 18 113/80 95 10/19/22 17:25 126 H 18 97/57 L 95 10/19/22 17:19 132 H 20 97/57 L 92 10/19/22 17:11 36.4 C L 150 H 20 108/68 99 10/19/22 16:38 132 H 10/19/22 16:36 130 H 21 100 10/19/22 16:45 120 H 20 117/74 99 10/19/22 16:44 99 10/19/22 16:38 36.6 C 134 H 20 117/74 100 O2 Del Method O2 Flow Rate 10/19/22 18:20 10/19/22 18:09 10/19/22 17:45 4 10/19/22 17:53 Nasal Cannula 4 10/19/22 17:30 4 10/19/22 17:25 10/19/22 17:19 10/19/22 17:11 10/19/22 16:38 10/19/22 16:36 10/19/22 16:45 Room Air 10/19/22 16:44 Room Air 10/19/22 16:38 Room Air Laboratory Results Short CBC 10/19/22 Range/Units 16:35 WBC 19.66 H (4.8-10.8) K/ul Hgb 8.2 L (12.0-16.0) g/dl Hct 25.0 L (37.0-47.0) % Plt Count 189 (130-400) K/uL BMP 10/19/22 16:35 Sodium 136 Potassium 3.8 Chloride 106 Carbon Dioxide 24 BUN 11 Creatinine 0.74 Glucose 284 H Calcium 7.3 L Liver Function 10/19/22 Range/Units 16:35 Total Bilirubin 0.4 (0.2-1.0) mg/dl AST 72 H (13-39) U/L ALT 212 H (7-52) U/L Alkaline Phosphatase 153 H (34-104) U/L Albumin 3.2 L (3.4-5.0) gm/dl Urine 10/19/22 Range/Units 16:47 Urine Color Yellow Urine Appearance Clear (Clear) Urine pH 5.0 (4.5-7.5) Ur Specific Joice 1.034 H (1.000-1.030) Urine Protein Negative (Negative) Urine Glucose (UA) 3+ H (Negative) Diagnostic Findings Abdomen/Pelvis CT 10/19/22 16:37 CT ANGIOGRAM OF THE CHEST; CT SCAN OF THE ABDOMEN AND PELVIS WITH IV CONTRAST CLINICAL HISTORY: Hypotension and tachycardia status post cholecystectomy. Generalized abdominal pain. COMPARISON STUDY: Abdominal CT dated 04/25/2015. TECHNIQUE: Following the IV administration of 114 of Optiray 320, CT angiogram of the chest is performed from the upper abdomen to the thoracic inlet utilizing the pulmonary embolus protocol. Images are reviewed in the axial, sagittal, coronal planes. 3-D MIPS images are created and assessed. Subsequently, CT scan of the abdomen and pelvis was performed from the lung bases to the proximal femora. Images are reviewed in the axial, sagittal, and coronal planes. IV contrast was administered without complication. A dose lowering technique was utilized adhering to the principles of ALARA. CT DOSE: 1215.03 mGy.cm FINDINGS: CHEST: Thyroid: Imaged portions of the thyroid gland are normal in size and attenuation. Thoracic aorta: The thoracic aorta is normal in caliber and demonstrates 4- vessel variant arch anatomy. No dissection is seen. Pulmonary vasculature: The pulmonary trunk is normal in caliber. There are no filling defects identified in the main, lobar, or segmental pulmonary arteries to indicate pulmonary embolus. Heart: The heart is normal in size noting trace pericardial effusion. Lungs and pleural spaces: Dependent segmental atelectasis is seen bilaterally. There is no airspace consolidation typical for pneumonia or pleural effusion. The trachea and central airways are clear. Mediastinum: There is no mediastinal lymphadenopathy. Bobbi: Clear. Axillae: There is no axillary lymphadenopathy. Bony thorax: No lytic or blastic lesions are identified. ABDOMEN AND PELVIS: Liver: The contrast-enhanced liver is normal in size, contour, and attenuation. There is no intrahepatic or ductal dilatation. The hepatic veins and portal veins are patent. Gallbladder: The gallbladder is surgically absent with clips in the gallbladder fossa. There is a large complex hyperdense fluid collection containing foci of gas located in the gallbladder fossa. This measures approximately 9 x 9 x 6 cm and likely represents a large hematoma. No active extravasation is definitively identified. Spleen: Normal in size and attenuation. Pancreas: Unremarkable. Adrenal glands: Unremarkable. Kidneys: The contrast enhanced kidneys are normal in size and without hydronephrosis. The kidneys enhance symmetrically. Abdominal vasculature: The abdominal aorta is normal in course and caliber noting scattered foci of atherosclerotic calcification. Bowel: The small bowel and colon are normal in course and caliber. The appendix is surgically absent. Peritoneum: Numerous small foci of intraperitoneal free air are nonspecific and likely related to recent surgery. There is evidence of previous ventral hernia repair. There is a moderate to large volume of hemoperitoneum. Hyperdense blood products are identified around the liver, and are hyperdense blood products with a hematocrit level seen in the pelvis. Induration an tiny foci of gas within the abdominal wall is likely related to recent surgery. Lymphadenopathy: None. Pelvic viscera: The bladder is decompressed around a Garcia catheter and not well evaluated. The uterus is surgically absent. No adnexal lesion is seen. Skeletal structures: No lytic or blastic lesions are seen. Sclerotic change is noted in the sacroiliac joints. IMPRESSION: 1. There is no evidence of pulmonary embolus in the main, lobar, or segmental pulmonary arteries. 2. Dependent segmental atelectasis is seen at both lung bases. There is no airspace consolidation typical for pneumonia or pleural effusion identified. 3. The gallbladder is surgically absent, and a large complex/hyperdense collection in the gallbladder fossa likely represents a hematoma. 4. No active extravasation is clearly identified at the time of examination. 5. Moderate to large volume of hemoperitoneum in the abdomen and pelvis. 6. Numerous foci of intraperitoneal free air are likely related to recent surgery. 7. Additional findings as above. ACT 112: Negative or not required by law. Electronically signed by: Alberto Pastrana M.D. 10/19/2022 5:34 PM Chest CTA 10/19/22 16:38 CT ANGIOGRAM OF THE CHEST; CT SCAN OF THE ABDOMEN AND PELVIS WITH IV CONTRAST CLINICAL HISTORY: Hypotension and tachycardia status post cholecystectomy. Generalized abdominal pain. COMPARISON STUDY: Abdominal CT dated 04/25/2015. TECHNIQUE: Following the IV administration of 114 of Optiray 320, CT angiogram of the chest is performed from the upper abdomen to the thoracic inlet utilizing the pulmonary embolus protocol. Images are reviewed in the axial, sagittal, coronal planes. 3-D MIPS images are created and assessed. Subsequently, CT scan of the abdomen and pelvis was performed from the lung bases to the proximal femora. Images are reviewed in the axial, sagittal, and coronal planes. IV contrast was administered without complication. A dose lowering technique was utilized adhering to the principles of ALARA. CT DOSE: 1215.03 mGy.cm FINDINGS: CHEST: Thyroid: Imaged portions of the thyroid gland are normal in size and attenuation. Thoracic aorta: The thoracic aorta is normal in caliber and demonstrates 4- vessel variant arch anatomy. No dissection is seen. Pulmonary vasculature: The pulmonary trunk is normal in caliber. There are no filling defects identified in the main, lobar, or segmental pulmonary arteries to indicate pulmonary embolus. Heart: The heart is normal in size noting trace pericardial effusion. Lungs and pleural spaces: Dependent segmental atelectasis is seen bilaterally. There is no airspace consolidation typical for pneumonia or pleural effusion. The trachea and central airways are clear. Mediastinum: There is no mediastinal lymphadenopathy. Bobbi: Clear. Axillae: There is no axillary lymphadenopathy. Bony thorax: No lytic or blastic lesions are identified. ABDOMEN AND PELVIS: Liver: The contrast-enhanced liver is normal in size, contour, and attenuation. There is no intrahepatic or ductal dilatation. The hepatic veins and portal veins are patent. Gallbladder: The gallbladder is surgically absent with clips in the gallbladder fossa. There is a large complex hyperdense fluid collection containing foci of gas located in the gallbladder fossa. This measures approximately 9 x 9 x 6 cm and likely represents a large hematoma. No active extravasation is definitively identified. Spleen: Normal in size and attenuation. Pancreas: Unremarkable. Adrenal glands: Unremarkable. Kidneys: The contrast enhanced kidneys are normal in size and without hydronephrosis. The kidneys enhance symmetrically. Abdominal vasculature: The abdominal aorta is normal in course and caliber noting scattered foci of atherosclerotic calcification. Bowel: The small bowel and colon are normal in course and caliber. The appendix is surgically absent. Peritoneum: Numerous small foci of intraperitoneal free air are nonspecific and likely related to recent surgery. There is evidence of previous ventral hernia repair. There is a moderate to large volume of hemoperitoneum. Hyperdense blood products are identified around the liver, and are hyperdense blood products with a hematocrit level seen in the pelvis. Induration an tiny foci of gas within the abdominal wall is likely related to recent surgery. Lymphadenopathy: None. Pelvic viscera: The bladder is decompressed around a Garcia catheter and not well evaluated. The uterus is surgically absent. No adnexal lesion is seen. Skeletal structures: No lytic or blastic lesions are seen. Sclerotic change is noted in the sacroiliac joints. IMPRESSION: 1. There is no evidence of pulmonary embolus in the main, lobar, or segmental pulmonary arteries. 2. Dependent segmental atelectasis is seen at both lung bases. There is no airspace consolidation typical for pneumonia or pleural effusion identified. 3. The gallbladder is surgically absent, and a large complex/hyperdense collection in the gallbladder fossa likely represents a hematoma. 4. No active extravasation is clearly identified at the time of examination. 5. Moderate to large volume of hemoperitoneum in the abdomen and pelvis. 6. Numerous foci of intraperitoneal free air are likely related to recent surgery. 7. Additional findings as above. ACT 112: Negative or not required by law. Electronically signed by: Alberto Pastrana M.D. 10/19/2022 5:34 PM Code Status & VTE Plan VTE Prophylaxis Plan VTE Prophylaxis will be ordered: Yes Supervising Physician Co-Signing Physician Notes History and physical exam performed by me. Notable for 37-year-old woman with history of hypothyroidism, GERD who presented from [facility] [place] where she had laparoscopic cholecystectomy today and was noted to be hypotensive, tachycardic with increased abdominal distention postop. Patient currently reports right-sided abdominal pain and fullness, feeling unwell. Reported nausea in the PACU had outside surgical center which had resolved. Reported feeling weak. On exam, General: Pale ill looking woman Eyes: PERRL, +pallor, EOM intact bilaterally ENMT: External ear and nose normal, oropharynx normal Respiratory: Normal respiratory effort, no respiratory distress, lungs clear to auscultation, no crackles and no wheezes Cardiovascular: Tachycardic, regular rhythm, S1 S2 Gastrointestinal (Abdomen): Abdomen is distended, tender, +rebound tenderness. Dressing over laparoscopic sites. Reduced bowel sounds Musculoskeletal: No pedal edema Neurologic: Alert and oriented x 3, No focal weakness, sensation grossly intact Psychiatric: Euthymic affect Labs notable for WBC of 19.6, hemoglobin of 8.2, glucose of 284, AST of 72, ALT of 212, alkaline phosphatase of 153 Chest CTA and abdominal pelvic CT noted surgically absent gallbladder and a large complex collection in the gallbladder fossa likely representing hematoma, no active extravasation. Moderate to large volume hemoperitoneum and abdomen and pelvis. Postoperative hemorrhage Following laparoscopic cholecystectomy. Acute blood loss anemia. Hemoglobin was 12.4 on 10/15/2022, down to 8.2 today. Getting 2 PRBC Patient being admitted to the ICU. Monitor hemoglobin closely. Started GI has been consulted. Keep n.p.o. in case clinical status deteriorates that she may need to be taken back to the OR. Other plans as detailed by Natalie JASON (1) Postoperative hemorrhagic shock Encounter type: initial encounter Qualified Code(s): T81.19XA - Other postprocedural shock, initial encounter
[2022-10-19 18:40] LABS: Fibrinogen 261 mg/dl (184-400); Partial Thromboplastin Ratio 0.8; Partial Thromboplastin Time 23.1 Seconds (21.0-31.0); Prothrombin Time 11.1 Seconds (9.0-12.0)
--- NOTE | 2022-10-19 18:45 | Surgery Consultation ---
Date of Consultation October 19, 2022 Assessment & Plan (1) Hemoperitoneum: Patient status post laparoscopic cholecystectomy with postoperative bleeding We are going to admit her to the intensive care unit and give her 2 units of blood and monitor her closely Monitor her hemoglobin hematocrit If she does show signs of deterioration we will take her to the operating room She will most likely require an open operation We will have the ICU team and medical teams help us with her care History of Present Illness History of Present Illness 37-year-old female who underwent laparoscopic cholecystectomy this morning at [facility] by Dr. Herndon It was a difficult operation and she did have some bleeding at the time of operation It appears she continued to hemorrhage and was sent to our emergency room presenting with tachycardia and very pale Her initial H&H was 8.2 and 25 She has been ordered 2 units of blood Her blood pressure is 100/70 and her pulse is 130 She was sent urgently to the CAT scan Her CAT scan of chest and abdomen did not show any extravasation or active bleeding it did show significant hemoperitoneum Allergies Allergy/AdvReac Type Severity Reaction Status Date / Time [id number] Allergy Unknown NKDA Uncoded 04/25/15 21:02 Home Medications Medication Instructions Recorded Confirmed Type levothyroxine 75 mcg tablet 75 mcg PO DAILY 10/19/22 10/19/22 History liraglutide (weight loss) 3 mg/0.5 3 mg subcut DAILY 10/19/22 10/19/22 History mL (18 mg/3 mL) subcut pen injector (Saxenda) omeprazole 40 mg capsule,delayed 40 mg PO HS 10/19/22 10/19/22 History release Patient History Medical History Hypothyroidism Obesity Postoperative hemorrhage Surgical History H/O hernia repair H/O wisdom tooth extraction History of appendectomy Status post cholecystectomy Status post hysterectomy Social History Smoking Status: Never smoker Preferred Language: Telugu Feels Safe at Home: Yes Review of Systems Review of Systems: All systems reviewed & are unremarkable except as noted in HPI & below Physical Exam Physical Exam: Patient is awake in mild distress She is very pale her abdomen is mildly distended but not rigid Constitutional: well developed; no acute distress Eyes: + anicteric sclerae Respiratory: normal respiratory effort; no respiratory distress Cardiovascular: Rate/Rhythm: + tachycardic Gastrointestinal (Abdomen): Inspection/Auscultation: + abdomen distended Musculoskeletal: Head/Neck/Chest: head atraumatic Skin: no rashes, warm and dry Neurologic: awake Psychiatric: Orientation: alert Results & Data ([facility]) Vital Signs (Past 12 Hours) Vital Signs Temp Pulse Pulse Resp BP BP Pulse Ox 10/19/22 18:29 105 H 18 110/59 L 99 10/19/22 18:20 116 H 18 102/65 99 10/19/22 18:09 115 H 18 103/65 99 10/19/22 17:45 106 H 18 120/62 100 10/19/22 17:53 113 H 18 120/62 100 10/19/22 17:30 123 H 18 113/80 95 10/19/22 17:25 126 H 18 97/57 L 95 10/19/22 17:19 132 H 20 97/57 L 92 10/19/22 17:11 36.4 C L 150 H 20 108/68 99 10/19/22 16:38 132 H 10/19/22 16:36 130 H 21 100 10/19/22 16:45 120 H 20 117/74 99 10/19/22 16:44 99 10/19/22 16:38 36.6 C 134 H 20 117/74 100 O2 Del Method O2 Flow Rate 10/19/22 18:29 2 10/19/22 18:20 10/19/22 18:09 10/19/22 17:45 4 10/19/22 17:53 Nasal Cannula 4 10/19/22 17:30 4 10/19/22 17:25 10/19/22 17:19 10/19/22 17:11 10/19/22 16:38 10/19/22 16:36 10/19/22 16:45 Room Air 10/19/22 16:44 Room Air 10/19/22 16:38 Room Air Laboratory Results I did review her laboratories Diagnostic Findings I reviewed her CAT scan films and report PG Care Time/CCT Total # of Minutes Spent Total Time Spent with Patient: Total time spent is greater than 50% in coordination of care (as documented) at patient's floor/unit and/or counseling patient: Coding Level of Care Code 26002 IN/OBS CONSULT LVL 3,45M Diagnoses Hemoperitoneum K66.1
[2022-10-19] MEDS ORDERED: fentaNYL citrate PF 100 MCG/2 ML VIAL ONE (19:00)
[2022-10-19] MEDS ORDERED: fentaNYL citrate PF 100 MCG/2 ML VIAL IV STA (19:06)
[2022-10-19] MEDS ORDERED: HYDROmorphone INJ 0.5 MG/0.5 ML SYR ONE (19:59)
[2022-10-19] MEDS: HYDROmorphone INJ 0.5 MG/0.5 ML SYR IV PRN (20:00)
[2022-10-19 22:51] LABS: Hematocrit (blood only) 37.3 % (37.0-47.0); Hemoglobin 12.9 g/dl (12.0-16.0)
[2022-10-20] MEDS: ICU Protocol for HYPERglycemia SCH ×3 (00:10→12:11)
[2022-10-20] MEDS: HYDROmorphone INJ 0.5 MG/0.5 ML SYR IV PRN ×4 (00:24→18:09)
[2022-10-20 03:14] LABS: Hematocrit (blood only) 33.1 % (37.0-47.0); Hemoglobin 11.6 g/dl (12.0-16.0); Mean Corpuscular Hemoglobin 31.2 pg (25.0-34.0); Mean Platelet Volume 9.6 fL (9.4-12.4); Platelet Count 145 K/uL (130-400); RDW Coefficient of Variation 14.4 % (11.5-14.5); RDW Standard Deviation 46.1 fL (36.4-46.3); Red Blood Count 3.72 M/uL (4.20-5.40); White Blood Count 16.24 K/ul (4.8-10.8)
[2022-10-20 03:17] LABS: Albumin Globulin Ratio 1.8 (0.9-2); Albumin Level 3.6 gm/dl (3.4-5.0); BUN Creatinine Ratio 20.3 (10-20); Bilirubin,Total 1.9 mg/dl (0.2-1.0); Calcium 8.4 mg/dl (8.5-10.1); Creatinine Clr Calc Pharmacy 125.6 ml/min; Est GFR (African American) 136.7 ml/min; Est GFR (Non-African American) 117.9 ml/min; Potassium 4.3 mmol/L (3.5-5.1); Total Protein 5.6 gm/dl (6.0-8.3)
[2022-10-20] MEDS ORDERED: PIPERACILLIN/TAZOBACTAM 3.375 GM in DEXTROSE 5% 100 ML IV SCH (04:00)
[2022-10-20 05:29] LABS: Basophils # (auto) 0.03 K/uL (0-0.2); Basophils % (auto) 0.2 %; Immature Granulocytes % (auto) 0.6 %; Lymphocytes # (auto) 1.06 K/uL (1.2-3.4); Lymphocytes % (auto) 6.6 %; Monocytes # (auto) 2.04 K/uL (0.11-0.59); Monocytes % (auto) 12.7 %; Neutrophils # (auto) 12.88 K/uL (1.40-6.50); Neutrophils % (auto) 79.9 %
[2022-10-20 05:40] LABS: Magnesium 2.4 mg/dl (1.7-2.4); Phosphorus 3.8 mg/dl (2.5-4.9)
--- NOTE | 2022-10-20 06:13 | Surgery Progress Note ---
Date of Service October 20, 2022 Assessment & Plan (1) Hemoperitoneum: Plan: Patient is awake and alert Her vital signs are stable-pressure dropped slightly after Dilaudid She had 900 cc of urine output overnight After her blood transfusion her initial hemoglobin was 12.9 this morning is 11.6 I anticipate slightly further drop as her initial response was relatively high We will try some clear liquids, would leave the Garcia for now Limit activity-bathroom only Admission and Anticipated Discharge Date Admission Date: October 19, 2022 Results & Data ([facility]) Vital Signs (Past 12 Hours) Vital Signs Temp Pulse Pulse Resp BP BP Pulse Ox 10/20/22 05:30 104/75 10/20/22 05:30 87 22 99 10/20/22 05:00 96 H 19 96 10/20/22 05:00 113/63 10/20/22 04:30 109/66 10/20/22 04:30 85 17 95 10/20/22 04:00 89 16 97 10/20/22 04:00 105/58 L 10/20/22 03:30 111/67 10/20/22 03:30 95 H 19 97 10/20/22 03:00 89 21 98 10/20/22 03:00 111/70 10/20/22 02:30 92 H 14 95 10/20/22 02:30 110/75 10/20/22 02:00 94 H 15 95 10/20/22 02:00 123/68 10/20/22 01:30 111/74 10/20/22 01:30 89 12 95 10/20/22 01:00 95 H 12 93 10/20/22 01:00 112/67 10/20/22 00:31 108 H 15 97 10/20/22 00:31 82/62 L 10/20/22 00:21 115/70 10/20/22 00:21 87 22 92 10/20/22 00:00 91 H 12 99 10/20/22 00:00 105/79 10/19/22 23:30 101/78 10/19/22 23:30 86 21 98 10/19/22 23:00 90 20 97 10/19/22 23:00 108/63 10/19/22 22:30 125 H 19 99 10/19/22 22:30 100/66 10/20/22 04:00 36.7 C 10/20/22 00:12 36.7 C 10/19/22 22:00 89 14 98 10/19/22 22:00 114/77 10/19/22 21:30 103/82 10/19/22 21:30 115 H 16 100 10/19/22 21:00 94 H 13 98 10/19/22 21:00 110/74 10/19/22 20:30 105/71 10/19/22 20:30 102 H 23 96 10/19/22 20:00 104 H 20 100 10/19/22 20:00 124/83 10/19/22 19:45 104 H 19 96 10/19/22 19:45 108/80 10/19/22 19:30 115 H 21 100 10/19/22 19:30 129/82 10/19/22 19:15 115/85 10/19/22 19:15 110 H 18 98 10/19/22 19:05 112 H 20 99 10/19/22 19:05 117/80 10/19/22 19:00 145 H 28 H 95 10/19/22 18:57 36.8 C 10/19/22 19:45 36.8 C 106 H 14 124/83 100 10/19/22 19:30 36.8 C 105 H 14 120/65 96 10/19/22 19:00 105 H 14 103/65 10/19/22 19:12 36.8 C 109 H 18 117/80 99 10/19/22 18:29 105 H 18 110/59 L 99 10/19/22 18:20 116 H 18 102/65 99 O2 Del Method O2 Flow Rate 10/20/22 05:30 10/20/22 05:30 10/20/22 05:00 10/20/22 05:00 10/20/22 04:30 10/20/22 04:30 10/20/22 04:00 10/20/22 04:00 10/20/22 03:30 10/20/22 03:30 10/20/22 03:00 10/20/22 03:00 10/20/22 02:30 10/20/22 02:30 10/20/22 02:00 10/20/22 02:00 10/20/22 01:30 10/20/22 01:30 10/20/22 01:00 10/20/22 01:00 10/20/22 00:31 10/20/22 00:31 10/20/22 00:21 10/20/22 00:21 10/20/22 00:00 10/20/22 00:00 10/19/22 23:30 10/19/22 23:30 10/19/22 23:00 10/19/22 23:00 10/19/22 22:30 10/19/22 22:30 10/20/22 04:00 10/20/22 00:12 10/19/22 22:00 10/19/22 22:00 10/19/22 21:30 10/19/22 21:30 10/19/22 21:00 10/19/22 21:00 10/19/22 20:30 10/19/22 20:30 10/19/22 20:00 Room Air 10/19/22 20:00 10/19/22 19:45 10/19/22 19:45 10/19/22 19:30 10/19/22 19:30 10/19/22 19:15 10/19/22 19:15 10/19/22 19:05 10/19/22 19:05 10/19/22 19:00 10/19/22 18:57 10/19/22 19:45 10/19/22 19:30 10/19/22 19:00 10/19/22 19:12 Room Air 10/19/22 18:29 2 10/19/22 18:20 PG Care Time/CCT Total # of Minutes Spent Total Time Spent with Patient: Total time spent is greater than 50% in coordination of care (as documented) at patient's floor/unit and/or counseling patient: Coding Level of Care Code None Diagnoses Hemoperitoneum K66.1
[2022-10-20 07:52] LABS: Estimated Average Glucose 103 mg/dl; Hemoglobin A1C 5.2 % (4.5-5.6)
[2022-10-20] MEDS ORDERED: Patient's ALLERGY Info needs ENTERED SCH (08:30)
--- NOTE | 2022-10-20 08:39 | Critical Care Progress Note ---
Date of Service October 20, 2022 Assessment & Plan (1) Status post cholecystectomy: (2) Postoperative hemorrhage: (3) Obesity: Plan 37-year-old female with a history of hypothyroidism and obesity presenting to the ER after undergoing a laparoscopic cholecystectomy today. She has evidence of postoperative hemorrhage based on CT of her abdomen and pelvis. There is not appear to be active extravasation. Neurologic: No significant issues at present. Transition from IV pain medication to p.o. oxycodone 5 mg every 6 hours. Tylenol to augment opiates. Pulmonary: No acute issues at this time. Mild atelectasis postoperatively noted on CT chest. No evidence of pulmonary embolism. Cardiovascular: Sinus tachycardia present secondary to acute hemorrhage improving Gastrointestinal: Postop day 1 status post cholecystectomy. Acute hemoperitoneum noted on CT abdomen and pelvis. Fortunately no evidence of significant active extravasation on CTA. NPO. General surgery following. Renal: No issues. Garcia catheter placed. Infectious disease: No issues. Hematologic: Status post 2 units of packed RBCs. Hemoglobin responded appropriately. Recheck hemoglobin now. Endocrine: Maintain glucose under 180. Restart levothyroxine. Lines and tubes: Two 18-gauge IVs and one 20-gauge IV. Garcia catheter in place. VTE prophylaxis: SCDs CODE STATUS: Full Family at bedside: None at bedside. Disposition: Stable for downgrade to PCU if repeat hemoglobin unremarkable. Admission and Anticipated Discharge Date Admission Date: October 19, 2022 Subjective Mentating well. Tolerating diet. Slight drop in pressure after pain medications. Still has soreness around the incision sites. Urine output adequate. Review of Systems Review of Systems: All systems reviewed & are unremarkable except as noted in HPI & below Physical Exam Physical Exam: Constitutional: Patient is in no significant distress. Eyes: Pupils are equal round and reactive to light. Conjunctivae are normal. Anicteric sclera. Ears nose, mouth and throat: Mallampati class 2. Normal posterior oropharynx. Uvula is midline. Neck: Trachea is midline. Visual inspection is normal. Respiratory: Clear to auscultation bilaterally. No use of accessory muscles. No significant clubbing noted. Cardiovascular: Regular rate and rhythm. No murmurs. No edema. Gastrointestinal: Soft abdomen. No rebound. Bandages noted. Musculoskeletal: No cyanosis. Patient is able to move all extremities. Strength is 5 out of 5 in the upper and lower extremities. Skin: No rashes, warm dry and intact. Neurologic: No obvious focal neurological deficits seen. Psychiatric: Alert and oriented x3 with a euthymic affect. Results & Data Results & Data ([facility]) Vital Signs (Past 12 Hours) Vital Signs Temp Pulse Resp BP Pulse Ox O2 Del Method 10/20/22 07:30 116 H 28 H 109/74 96 Room Air 10/20/22 07:27 123 H 22 122/70 96 Room Air 10/20/22 07:22 111 H 18 117/54 L 98 Room Air 10/20/22 07:00 108 H 27 H 110/63 95 Room Air 10/20/22 07:15 36.8 C 10/20/22 07:15 Room Air 10/20/22 05:30 104/75 10/20/22 05:30 87 22 99 10/20/22 05:00 96 H 19 96 10/20/22 05:00 113/63 10/20/22 04:30 109/66 10/20/22 04:30 85 17 95 10/20/22 04:00 89 16 97 10/20/22 04:00 105/58 L 10/20/22 03:30 111/67 10/20/22 03:30 95 H 19 97 10/20/22 03:00 89 21 98 10/20/22 03:00 111/70 10/20/22 02:30 92 H 14 95 10/20/22 02:30 110/75 10/20/22 02:00 94 H 15 95 10/20/22 02:00 123/68 10/20/22 01:30 111/74 10/20/22 01:30 89 12 95 10/20/22 01:00 95 H 12 93 10/20/22 01:00 112/67 10/20/22 00:31 108 H 15 97 10/20/22 00:31 82/62 L 10/20/22 00:21 115/70 10/20/22 00:21 87 22 92 10/20/22 00:00 91 H 12 99 10/20/22 00:00 105/79 10/19/22 23:30 101/78 10/19/22 23:30 86 21 98 10/19/22 23:00 90 20 97 10/19/22 23:00 108/63 10/19/22 22:30 125 H 19 99 10/19/22 22:30 100/66 10/20/22 04:00 36.7 C 10/20/22 00:12 36.7 C 10/19/22 22:00 89 14 98 10/19/22 22:00 114/77 10/19/22 21:30 103/82 10/19/22 21:30 115 H 16 100 10/19/22 21:00 94 H 13 98 10/19/22 21:00 110/74 Coding Level of Care Code 45448 SUB INP/OBS CARE 2/35MIN Diagnoses Status post cholecystectomy Z90.49 Postoperative hemorrhage Obesity E66.9
[2022-10-20] MEDS: LEVOTHYROXINE SODIUM 75 MCG TABLET PO SCH ×2 (08:56→08:58)
[2022-10-20] MEDS: oxyCODONE HCL IR 5 MG TAB (IMMEDIATE RELEASE) PO PRN ×3 (08:56→20:44)
[2022-10-20] MEDS ORDERED: Nursing to Pharmacy Communication SCH (09:00)
--- NOTE | 2022-10-20 09:31 | Electrocardiogram Report ---
Test Reason : Blood Pressure : / mmHG Vent. Rate : 131 BPM Atrial Rate : 131 BPM P-R Int : 130 ms QRS Dur : 058 ms QT Int : 300 ms P-R-T Axes : 042 055 060 degrees QTc Int : 443 ms Sinus tachycardia Otherwise normal ECG No previous ECGs available Confirmed by Candelario Stanford ([id number]) on 10/20/2022 9:30:46 AM Referred By: Provider Outside Confirmed By:Candelario Stanford
[2022-10-20 09:33] LABS: Hematocrit (blood only) 33.2 % (37.0-47.0); Hemoglobin 11.4 g/dl (12.0-16.0); Mean Corpuscular Hemoglobin 31.1 pg (25.0-34.0); Mean Corpuscular Hgb Conc 34.3 g/dL (32.0-36.0); Mean Corpuscular Volume 90.7 fL (80.0-100.0); Mean Platelet Volume 9.7 fL (9.4-12.4); Platelet Count 141 K/uL (130-400); RDW Coefficient of Variation 14.6 % (11.5-14.5); RDW Standard Deviation 48.2 fL (36.4-46.3); Red Blood Count 3.66 M/uL (4.20-5.40); White Blood Count 15.28 K/ul (4.8-10.8)
--- NOTE | 2022-10-20 12:30 | Ultrasound Report ---
US renal/blad retro comp CLINICAL HISTORY: oliguric TECHNIQUE: Multiple sonographic real-time images of the kidneys and bladder were obtained. COMPARISON: Comparison is made to CT abdomen pelvis 10/19/2022 FINDINGS: The right kidney measures 7.8 cm in length, and the left kidney measures 9.8 cm in length. The right kidney is normal in size, contour, cortical thickness, and echogenicity. No hydronephrosis is identified. No renal lesion is identified. No perinephric fluid collection is seen. The left kidney is normal in size, contour, cortical thickness and echogenicity. No hydronephrosis i s identified. No renal lesion is identified. No perinephric fluid collection is seen. There is an echogenic area in the low pelvis which is nonspecific. No large intraluminal mass is seen . IMPRESSION: Diminutive kidneys bilaterally without evidence of acute abnormality and in particular no hydronephro sis. ACT 112: Negative or not required by law. Electronically signed by: Randolph Frost M.D. 10/20/2022 12:29 PM
--- NOTE | 2022-10-20 13:22 | Urology Consultation ---
Date of Consultation October 20, 2022 Assessment & Plan (1) Postoperative hemorrhagic shock: (2) Urinary retention: Plan After full evaluation a Garcia catheter was inserted utilizing aseptic technique An 18 Swiss temperature-sensing catheter was placed without difficulty There was an immediate return of urine although was relatively limitedapproximately 30 to 40 cc of a relatively dark concentrated urine Catheter advanced without any challenge, I am confident this is in the bladder and I have discussed with ICU team that I suspect that the fluid in the pelvis is what is seen on formal ultrasound as well as bladder scan but that this is not within the urinary system I have explained that that fluid can provide the pressure and sensation of urgency and need to void She is not currently receiving IV fluids and I suspect she is somewhat hypovolemic secondary to hemorrhagic shock Her creatinine has not bumped which is encouraging, but I have suggested some gentle hydration to see if we can improve urine production and output History of Present Illness Attending Physician: Alaina Garcia MD History of Present Illness 37-year-old female status post cholecystectomy yesterdayadmitted to the hospital after surgery secondary to substantial bleeding Has had an expected drop in hemoglobintransfused and stable now Urology consulted secondary to limited urine output and question of a malpositioned Garcia catheter Numerous attempts were made to reposition the catheter without definitive success She had a CT on arrival which was personally reviewed and interpretedshe has a substantial amount of fluid in her pelvis and she is status post hysterectomy Her bladder does not appear to be grossly distended, infected appears to be completely collapsed around and appropriately positioned Garcia catheter ICU team is performed several bladder scansI have discussed that the pelvic fluid can lead to misinterpretation of an overly distended bladder and make it very difficult to assess the true bladder distention She did have a formal renal bladder ultrasound as well todayI have interpreted those images as wellalthough she has a substantial amount of fluid in the pelvis and very difficult to assess whether this is within the bladder or adjacent to it Interestingly, her creatinine is 0.59 She has had no hematuria Although she has pelvic pressure she has not been able to void spontaneously Allergies Allergy/AdvReac Type Severity Reaction Status Date / Time No Known Drug Allergies Allergy Unknown Verified 10/20/22 08:27 Home Medications Medication Instructions Recorded Confirmed Type levothyroxine 75 mcg tablet 75 mcg PO DAILY 10/19/22 10/19/22 History liraglutide (weight loss) 3 mg/0.5 3 mg subcut DAILY 10/19/22 10/19/22 History mL (18 mg/3 mL) subcut pen injector (Presley) omeprazole 40 mg capsule,delayed 40 mg PO HS 10/19/22 10/19/22 History release Patient History Medical History Hypothyroidism Obesity Postoperative hemorrhage Surgical History H/O hernia repair H/O wisdom tooth extraction History of appendectomy Status post cholecystectomy Status post hysterectomy Social History Smoking Status: Never smoker Hx Alcohol Use: Yes Alcohol type: beer and wine Hx Substance Use: No Preferred Language: [place] Citizen Communication Ability: Effective Field Account Director Required: No Beliefs That Will Affect Care: None Current Living Situation: Spouse and Family Current Living Situation Comment: Patient lives at home with and four children Feels Safe at Home: Yes Assistive Devices: Glasses Review of Systems Constitutional: + fatigue; no fever and no chills Eyes: no worsening vision Ear, Nose, Mouth, Throat: no facial pain and no pain with swallowing Respiratory: no cough and no dyspnea Cardiovascular: no chest pain and no palpitations Gastrointestinal: as per Subjective / HPI, + abdominal pain and + bloating Genitourinary: as per Subjective / HPI and + difficulty urinating Musculoskeletal: no back pain Integumentary: no rash and no urticaria Neurologic: no gait abnormality and no unsteadiness Psychiatric: no behavioral changes and no depression Physical Exam Physical Exam: Incisions appropriate Abdomen modestly distended Expected levels of tenderness Vaginal anatomy without distortion Easily identifiable urethra No cystocele No fistulas Constitutional: well developed and well nourished Respiratory: no respiratory distress Cardiovascular: Extremities: no pedal edema Gastrointestinal (Abdomen): Inspection/Auscultation: abdomen normal to inspection Results & Data ([facility]) Vital Signs (Past 12 Hours) Vital Signs Temp Pulse Resp BP Pulse Ox O2 Del Method 10/20/22 12:00 36.8 C 10/20/22 12:17 108 H 21 109/66 96 Room Air 10/20/22 12:01 112 H 20 103/73 95 Room Air 10/20/22 11:30 116 H 22 113/71 92 Room Air 10/20/22 11:10 135 H 25 H 118/60 94 Room Air 10/20/22 11:00 124 H 23 108/66 93 Room Air 10/20/22 10:30 106 H 18 116/70 95 Room Air 10/20/22 10:00 102 H 16 120/64 96 Room Air 10/20/22 09:30 101 H 24 120/65 95 Room Air 10/20/22 09:00 89 19 113/65 96 Room Air 10/20/22 08:30 91 H 19 112/68 97 Room Air 10/20/22 08:00 105 H 20 115/68 98 Room Air 10/20/22 07:30 116 H 28 H 109/74 96 Room Air 10/20/22 07:27 123 H 22 122/70 96 Room Air 10/20/22 07:22 111 H 18 117/54 L 98 Room Air 10/20/22 07:00 108 H 27 H 110/63 95 Room Air 10/20/22 07:15 36.8 C 10/20/22 07:15 Room Air 10/20/22 05:30 104/75 10/20/22 05:30 87 22 99 10/20/22 05:00 96 H 19 96 10/20/22 05:00 113/63 10/20/22 04:30 109/66 10/20/22 04:30 85 17 95 10/20/22 04:00 89 16 97 10/20/22 04:00 105/58 L 10/20/22 03:30 111/67 10/20/22 03:30 95 H 19 97 10/20/22 03:00 89 21 98 10/20/22 03:00 111/70 10/20/22 02:30 92 H 14 95 10/20/22 02:30 110/75 10/20/22 02:00 94 H 15 95 10/20/22 02:00 123/68 10/20/22 01:30 111/74 10/20/22 01:30 89 12 95 10/20/22 04:00 36.7 C PG Care Time/CCT Total # of Minutes Spent Total Time Spent with Patient: Total time spent is greater than 50% in coordination of care (as documented) at patient's floor/unit and/or counseling patient: Coding Level of Care Code 92175 IN/OBS CONSULT LVL 4,60M Diagnoses Postoperative hemorrhagic shock T81.19XA Encounter type: initial encounter Urinary retention R33.9 (1) Postoperative hemorrhagic shock Encounter type: initial encounter Qualified Code(s): T81.19XA - Other postprocedural shock, initial encounter
--- NOTE | 2022-10-20 13:35 | Hospitalist Progress Note ---
Date of Service October 20, 2022 Assessment & Plan (1) Postoperative hemorrhage: Plan 37-year-old lady with PMH of hypothyroidism, obesity, GERD, migraine presented to the ED 10/19 from [facility] for evaluation of abdominal pain/hypotension/tachycardia after elective laparoscopic cholecystectomy on 10/19/2022. Upon arrival to the ED, patient was found hypotensive with systolic BPs in the 90s and associated tachycardia; CTAP showing moderate to large volume hemoperitoneum in the abdomen and pelvis without active stain extravasation. She is being managed for the following: (1) Postoperative hemorrhagic shock: (2) Status post cholecystectomy: Patient sent to ED 10/19 from [facility] after laparoscopic cholecystectomy. In PACU, patient developed worsening abdominal distention, hypotension, tachycardia. In the ED, positive FAST exam and CT ABD/pelvis showing moderate to large volume of hemoperitoneum in the abdomen and pelvis without active extravasation. At admission: Hb 8.2 (12.4 on 10/15/2022) s/p 2 units PRBC transfusion, Hb 12.9 to 11.4. BP imroving - still soft, still tachycardic. membership director and general Sx on board. clear liq per Sx. Being managed in ICU. (3) Leukocytosis: At admisison - WBC 19 K, likely reactive due to surgery/active bleeding WBC trending down, pt afebrile, continue to monitor off of antibiotic. (4) Elevated LFTs: T. bili 0.4, AST 72, ALT 212, alk phos 153 Likely reactive due to recent cholecystectomy Monitor LFTs (5) Hyperglycemia:A1c 5.2; likely complicated by acute stress. (6) Hypothyroidism: Continue home dose levothyroxine DVT PROPHYLAXIS: SCDs due to active postop bleeding Admission and Anticipated Discharge Date Admission Date: October 19, 2022 Subjective Patient seen and examined at bedside as a follow-up of postoperative hemorrhagic shock after laparoscopic cholecystectomy as outpatient on 10/19/2022. Patient was lying in bed, on room air, appears in mild distress, reports not being able to pass urine, was getting ultrasound of the belly, reports abdominal pain, denies chest pain or difficulty breathing, is tolerating liquid diet okay. Physical Exam Physical Exam: GENERAL: Alert and oriented x3. NAD, on RA. HEENT: No pallor, no icterus. Pupils equal, round and reactive to light. Oral mucosa moist. NECK: No JVD, no neck masses. HEART: S1 and S2 heard. Regular rhythm/tachycardia. No murmur, no gallop. RESPIRATORY SYSTEM: Normal AP diameter. No accessory muscle use. No wheezing, no crackles. ABDOMEN: Soft, bowel sounds present, mild tender, dressing over laparoscopic sites, no distention. CENTRAL NERVOUS SYSTEM: No facial droop. Speech is clear. Obeys simple commands. Moves extremities. EXTREMITIES: No edema, no erythema seen. Results & Data Results & Data ([facility]) Vital Signs (Past 12 Hours) Vital Signs Temp Pulse Resp BP Pulse Ox O2 Del Method 10/20/22 12:00 36.8 C 10/20/22 12:17 108 H 21 109/66 96 Room Air 10/20/22 12:01 112 H 20 103/73 95 Room Air 10/20/22 11:30 116 H 22 113/71 92 Room Air 10/20/22 11:10 135 H 25 H 118/60 94 Room Air 10/20/22 11:00 124 H 23 108/66 93 Room Air 10/20/22 10:30 106 H 18 116/70 95 Room Air 10/20/22 10:00 102 H 16 120/64 96 Room Air 10/20/22 09:30 101 H 24 120/65 95 Room Air 10/20/22 09:00 89 19 113/65 96 Room Air 10/20/22 08:30 91 H 19 112/68 97 Room Air 10/20/22 08:00 105 H 20 115/68 98 Room Air 10/20/22 07:30 116 H 28 H 109/74 96 Room Air 10/20/22 07:27 123 H 22 122/70 96 Room Air 10/20/22 07:22 111 H 18 117/54 L 98 Room Air 10/20/22 07:00 108 H 27 H 110/63 95 Room Air 10/20/22 07:15 36.8 C 10/20/22 07:15 Room Air 10/20/22 05:30 104/75 10/20/22 05:30 87 22 99 10/20/22 05:00 96 H 19 96 10/20/22 05:00 113/63 10/20/22 04:30 109/66 10/20/22 04:30 85 17 95 10/20/22 04:00 89 16 97 10/20/22 04:00 105/58 L 10/20/22 03:30 111/67 10/20/22 03:30 95 H 19 97 10/20/22 03:00 89 21 98 10/20/22 03:00 111/70 10/20/22 02:30 92 H 14 95 10/20/22 02:30 110/75 10/20/22 02:00 94 H 15 95 10/20/22 02:00 123/68 10/20/22 01:30 111/74 10/20/22 01:30 89 12 95 10/20/22 04:00 36.7 C
[2022-10-20] MEDS ORDERED: LACTATED RINGER'S 1,000 ML IV ONE ×2 (13:43→21:45)
[2022-10-20] MEDS ORDERED: LACTATED RINGER'S 1,000 ML IV SCH ×2 (15:45→23:45)
[2022-10-20] MEDS ORDERED: LEVOTHYROXINE SODIUM 75 MCG TABLET PO SCH (21:00)
[2022-10-20] MEDS ORDERED: LORazepam 0.5 MG TAB PO PRN (21:32)
[2022-10-20] MEDS ORDERED: ACETAMINOPHEN 325 MG TAB PO PRN (21:57)
[2022-10-20] MEDS ORDERED: ACETAMINOPHEN 325 MG TAB PO STA (21:57)
[2022-10-20] MEDS ORDERED: PIPERACILLIN/TAZOBACTAM 4.5 GM in DEXTROSE 5% 100 ML IV ONE (22:15)
--- NOTE | 2022-10-20 22:23 | Communication Note ---
Date of Service: October 20, 2022 Overnight developments 10/20, 9:15 PM Patient complaining of increasing abdominal pain. Patient noted to be tachycardic and febrile. No chest pain. Temperature 37.7, heart rate 130s, SBP 100s Patient unable to take a deep breath because of abdominal pain. CT abdomen pelvis: 1. Stable complex fluid and air collection within the gallbladder fossa. 2. Decreasing complex fluid throughout the abdomen and pelvis. Hemoglobin 7.7 from 11.4 in a.m. lactic acid 1.5 AP Intra-abdominal sepsis secondary to postcholecystectomy fluid collection, hemoperitoneum Worsening anemia CS, Zosyn IVF Dr. George (surgeon on-call) updated of developments. He recommends transfer to tertiary center for possible IR intervention. Transfuse 2 units PRBC to maintain hemoglobin greater than 9 10/21 12AM Notified by RN of patient increase shortness of breath, tachycardia, sensation of throat closing, rash after Zosyn initiated. SBP 90s Heart rate 150s Code purple subsequently called. AP ICU transfer Anaphylactic shock secondary to Zosyn DC Zosyn and add to allergy list Ertapenem in place off Zosyn for possible intra-abdominal sepsis IVF bolus Epinephrine IM Solu-Medrol, Benadryl, Pepcid [facility] initially called for transfer. No ICU beds available. [facility] [place] after discussing with patient's . Patient kindly accepted for transfer by Dr. Ragsdale (surgeon on-call) to surgical ICU pending repeat a.m. labs. Total time to prepare this discharge summary was 15 minutes. Text document was generated using [employer] voice recognition software. It may contain grammatical or spelling errors. Kindly contact undersigned for clarification of any documentation item in question.
[2022-10-20] MEDS ORDERED: oxyCODONE HCL IR 5 MG TAB (IMMEDIATE RELEASE) PO PRN (22:32)
[2022-10-20] MEDS ORDERED: OPTIRAY 350 100ml IV ONE (22:42)
--- NOTE | 2022-10-20 23:03 | CT Scan Report ---
Exam(s): CT ABDOMEN + PELVIS With Contrast IV Amt: 85 ml EXAM: CT Abdomen and Pelvis With Intravenous Contrast CLINICAL HISTORY: Reason for exam: worsening abd pain, fever. TECHNIQUE: Axial computed tomography images of the abdomen and pelvis with intravenous contrast. CTDI is 13.29 mGy and DLP is 659.38 mGy-cm. Automated exposure control was utilized for the study. A dose lowering technique was utilized adhering to the principles of ALARA. CONTRAST: Patient received 85 ml of IV contrast COMPARISON: 10/19/22 FINDINGS: Lung bases: Increasing atelectasis/consolidation at the lung bases. Pleural space: Small bilateral pleural effusions. ABDOMEN: Liver: Decreasing complex perihepatic fluid. Gallbladder and bile ducts: There is been no significant interval change in the complex fluid and air collection within the gallbladder fossa which measures 7.1 x 4.7 cm in this examination (image 34 series 2). No calcified stones. No ductal dilation. Pancreas: Unremarkable. No mass. No ductal dilation. Spleen: Unremarkable. No splenomegaly. Adrenals: Unremarkable. No mass. Kidneys and ureters: Unremarkable. No solid mass. No hydronephrosis. Stomach and bowel: Unremarkable. No obstruction. No mucosal thickening. PELVIS: Appendix: No findings to suggest acute appendicitis. Bladder: Garcia catheter within a collapsed urinary bladder. Reproductive: Unremarkable as visualized. ABDOMEN and PELVIS: Intraperitoneal space: Decreasing complex fluid within the deep pelvis. No free air. Bones/joints: No acute fracture. No dislocation. Soft tissues: Unremarkable. Vasculature: Unremarkable. No abdominal aortic aneurysm. Lymph nodes: Unremarkable. No enlarged lymph nodes. IMPRESSION: 1. Stable complex fluid and air collection within the gallbladder fossa. 2. Decreasing complex fluid throughout the abdomen and pelvis. Electronically signed by: Jerod Santiago MD 10/20/22 23:02 PM
[2022-10-20] MEDS ORDERED: diphenhydrAMINE 50 MG/ML VIAL IV STA (23:17)
[2022-10-20] MEDS ORDERED: EPINEPHrine INJ 1 MG/ML AMP IM STA ×2 (23:18→23:49)
[2022-10-20] MEDS ORDERED: methylPREDNISolone 125 MG in SYRINGE 0 ML IV ONE (23:23)
[2022-10-20] MEDS ORDERED: FAMOTIDINE 20MG IV PUSH 20 MG/5 ML SYR IV ONE (23:23)
[2022-10-20] MEDS ORDERED: ONDANSETRON INJ 2 MG/ML 2 ML VIAL ONE ×2 (23:25→23:57)
[2022-10-20 23:26] LABS: Hematocrit (blood only) 22.1 % (37.0-47.0); Hemoglobin 7.7 g/dl (12.0-16.0)
[2022-10-20] MEDS ORDERED: ACETAMINOPHEN 1,000 MG/100 ML VIAL IV STA (23:34)
[2022-10-20] MEDS ORDERED: LACTATED RINGER'S 1,000 ML IV STA (23:39)
[2022-10-20] MEDS ORDERED: SODIUM CHLORIDE 0.9% 250 ML IV PRN (23:53)
[2022-10-20] MEDS ORDERED: ONDANSETRON INJ 2 MG/ML 2 ML VIAL IV STA (23:57)
--- NOTE | 2022-10-21 00:01 | Communication Note ---
Date of Service: October 20, 2022 37-year-old female with history of hypothyroidism and obesity was seen by critical care team and admitted to ICU after undergoing laparoscopic Jyothi cystectomy yesterday and developing postoperative hemorrhage. She was monitored in the ICU overnight after receiving 2 units RBCs and was downgraded from ICU service earlier today. This evening she began to have increased abdominal pain. CT abdomen pelvis showed complex fluid and air collections within the gallbladder fossa and decreasing complex fluid throughout the abdomen and pelvis. Hemoglobin dropped to 7.7. Surgical team recommended transfer to tertiary center. ICU team responded to code purple in which the patient had been started on IV Zosyn and had anaphylactic reaction shortly after medication was started which had emergently been stopped. Patient became hypotensive, tachycardic, hypoxic, and developed a rash. She complained of shortness of breath and throat swelling. She was able to speak in complete sentences and swallow. She received IM epinephrine, IV famotidine, IV Benadryl, and IV Solu-Medrol. She is now being transferred to ICU for further management at this time. Chest x-ray consistent with pulmonary edema and she is started on CPAP and showed improvement in oxygenation. EKG showed sinus tachycardia with ventricular rate in the 150s. Blood pressures now improving following epinephrine administration. Hemoglobin now 7.7 and she is to receive 1 unit RBCs. Allergy list has been updated. At this time primary team is attempting to have the patient transferred to [facility]. Patient is to remain in ICU for further management at this time. Will assess need for additional IM epinephrine and will consider IV drip if needed although patient is already showing some signs of improvement. CRITICAL CARE TIME - I have personally spent 40 minutes of critical care time in the direct management of this patient. This is a life/limb threatening event. This includes time spent evaluating patient, direct bedside care, chart review, placing orders, interpretation of diagnostic studies, discussion with consultants, patient, and family members, as well as other required patient management activities. This time is exclusive of all separately billable procedures, and teaching time and separate from and in addition to any other critical care service time. Coding Level of Care Code 71037 CRITICAL CARE 1ST 30-74M
[2022-10-21] MEDS ORDERED: ERTAPENEM SODIUM 1,000 MG in SYRINGE 0 ML IV SCH (00:30)
--- NOTE | 2022-10-21 00:56 | Surgery Progress Note ---
Date of Service October 21, 2022 Assessment & Plan (1) Hemoperitoneum: Plan: Patient developed some additional right-sided abdominal pain with breathing She has developed some tachycardia, her urine output had decreased Her parents is much improved from admission Her abdomen is moderately distended but not rigid She responded well to some fluid bolus Her CT scan actually showed improvement over the scan on admission with less fluid in the abdomen She does have the hematoma in the subhepatic space which is essentially unchanged Her H&H did drop with a hemoglobin of 7.7 She was given a dose of Zosyn and had an anaphylactic reaction Transferred to the intensive care unit with pulmonary edema, not requiring intubation Currently being transfused 1 unit of blood With patient's complicated history and possible need for open operation I feel it would be in her interest to be transferred to tertiary care center where the potential for interventional radiology is present Admission and Anticipated Discharge Date Admission Date: October 19, 2022 Results & Data ([facility]) Vital Signs (Past 12 Hours) Vital Signs Temp Pulse Pulse Resp BP BP BP 10/20/22 23:53 140 H 10/21/22 00:37 37.2 C 140 H 18 82/57 L 10/20/22 23:40 148 H 22 10/21/22 00:20 37.7 C H 146 H 19 95/54 L 10/20/22 21:50 10/20/22 19:10 37.7 C H 131 H 18 100/61 10/20/22 18:14 37.5 C 10/20/22 18:04 118 H 20 113/67 10/20/22 16:00 119 H 10/20/22 16:00 116 H 15 106/63 10/20/22 15:00 117 H 23 107/65 10/20/22 16:00 36.6 C 10/20/22 14:00 115 H 22 120/57 L 10/20/22 13:00 108 H 20 110/75 Pulse Ox O2 Del Method FiO2 10/20/22 23:53 10/21/22 00:37 99 10/20/22 23:40 97 45 10/21/22 00:20 100 10/20/22 21:50 Room Air 10/20/22 19:10 94 Room Air 10/20/22 18:14 10/20/22 18:04 93 Room Air 10/20/22 16:00 10/20/22 16:00 93 Room Air 10/20/22 15:00 93 Room Air 10/20/22 16:00 10/20/22 14:00 96 Room Air 10/20/22 13:00 95 Room Air PG Care Time/CCT Total # of Minutes Spent Total Time Spent with Patient: Total time spent is greater than 50% in coordination of care (as documented) at patient's floor/unit and/or counseling patient: Coding Level of Care Code None Diagnoses Hemoperitoneum K66.1
[2022-10-21] MEDS ORDERED: LACTATED RINGER'S 1,000 ML IV SCH (01:45)
[2022-10-21] MEDS ORDERED: PIPERACILLIN/TAZOBACTAM 3.375 GM in DEXTROSE 5% 100 ML IV SCH (04:00)
[2022-10-21 05:26] LABS: Basophils # (auto) 0.03 K/uL (0-0.2); Basophils % (auto) 0.2 %; Eosinophils # (auto) 0.01 K/uL (0-0.50); Eosinophils % (auto) 0.1 %; Hematocrit (blood only) 32.8 % (37.0-47.0); Hemoglobin 11.5 g/dl (12.0-16.0); Immature Granulocytes # (auto) 0.19 K/uL (0.01-0.20); Immature Granulocytes % (auto) 1.2 %; Lymphocytes # (auto) 0.41 K/uL (1.2-3.4); Lymphocytes % (auto) 2.6 %; Mean Corpuscular Hemoglobin 31.5 pg (25.0-34.0); Mean Corpuscular Hgb Conc 35.1 g/dL (32.0-36.0); Mean Corpuscular Volume 89.9 fL (80.0-100.0); Mean Platelet Volume 9.2 fL (9.4-12.4); Monocytes # (auto) 1.66 K/uL (0.11-0.59); Monocytes % (auto) 10.6 %; Neutrophils # (auto) 13.32 K/uL (1.40-6.50); Neutrophils % (auto) 85.3 %; Platelet Count 128 K/uL (130-400); RDW Coefficient of Variation 14.3 % (11.5-14.5); RDW Standard Deviation 46.5 fL (36.4-46.3); Red Blood Count 3.65 M/uL (4.20-5.40); White Blood Count 15.62 K/ul (4.8-10.8)
[2022-10-21 05:48] LABS: Albumin Globulin Ratio 1.6 (0.9-2); Albumin Level 2.8 gm/dl (3.4-5.0); Bilirubin,Total 0.9 mg/dl (0.2-1.0); Calcium 8.3 mg/dl (8.5-10.1); Creatinine Clr Calc Pharmacy 123.6 ml/min; Est GFR (African American) 135.9 ml/min; Est GFR (Non-African American) 117.3 ml/min; Globulin 1.7 gm/dl (2.5-4.0); Magnesium 2.1 mg/dl (1.7-2.4); Potassium 3.9 mmol/L (3.5-5.1); Total Protein 4.5 gm/dl (6.0-8.3)
--- NOTE | 2022-10-21 06:17 | Surgery Progress Note ---
Date of Service October 21, 2022 Assessment & Plan (1) Hemoperitoneum: Plan: Patient status post laparoscopic cholecystectomy at outside institution Postoperative hemorrhage-seem to have subsided then rebleed Patient's repeat CAT scan appeared to be improved but H&H down Received dose of antibiotics for low-grade fever with anaphylactic reaction Pulmonary edema-admission to ICU Received 2 units of blood with good response-hemoglobin over 11, tachycardia improved Plan is for transfer to tertiary care [facility] Admission and Anticipated Discharge Date Admission Date: October 19, 2022 Subjective Patient awake and alert on O2 Vital signs have improved with 2 units of blood Plan is for transfer to [facility] Review of Systems Review of Systems: All systems reviewed & are unremarkable except as noted in HPI & below Physical Exam Physical Exam: Patient awake and alert Respiratory status seems to be stable Abdomen with mild to moderate distention Constitutional: no acute distress Results & Data ([facility]) Vital Signs (Past 12 Hours) Vital Signs Temp Pulse Pulse Resp BP BP BP 10/21/22 05:00 37 C 98 H 14 95/49 L 10/21/22 04:12 37 C 113 H 14 101/51 L 10/21/22 03:54 36.8 C 103 H 22 109/55 L 10/21/22 03:28 36.8 C 106 H 14 85/66 L 10/21/22 03:22 36.9 C 100 H 16 85/66 L 10/21/22 01:22 36.9 C 127 H 15 97/51 L 10/21/22 01:13 10/21/22 00:00 158 H 10/21/22 00:52 37 C 124 H 18 98/64 L 10/20/22 23:53 140 H 10/21/22 00:37 37.2 C 140 H 18 82/57 L 10/20/22 23:40 148 H 22 10/21/22 00:20 37.7 C H 146 H 19 95/54 L 10/20/22 21:50 10/20/22 19:10 37.7 C H 131 H 18 100/61 10/20/22 18:14 37.5 C 10/20/22 18:04 118 H 20 113/67 Pulse Ox O2 Del Method FiO2 10/21/22 05:00 92 10/21/22 04:12 92 10/21/22 03:54 93 10/21/22 03:28 100 10/21/22 03:22 100 10/21/22 01:22 99 10/21/22 01:13 CPAP 40 10/21/22 00:00 10/21/22 00:52 99 10/20/22 23:53 10/21/22 00:37 99 10/20/22 23:40 97 45 10/21/22 00:20 100 10/20/22 21:50 Room Air 10/20/22 19:10 94 Room Air 10/20/22 18:14 10/20/22 18:04 93 Room Air PG Care Time/CCT Total # of Minutes Spent Total Time Spent with Patient: Total time spent is greater than 50% in coordination of care (as documented) at patient's floor/unit and/or counseling patient: Coding Level of Care Code 80697 SUB INP/OBS CARE 1/25MIN Diagnoses Hemoperitoneum K66.1
--- NOTE | 2022-10-21 06:26 | Discharge Summary ---
Date of Service October 21, 2022 Admission HPI Per Admitting Provider 37-year-old female with PMH hypothyroidism, obesity, GERD, migraines, and other problems listed below who presents to the ED from [facility] for evaluation of abdominal pain, hypotension, tachycardia. History obtained by Dr. Orozco and my personal review of outpatient PCP records. Patient is s/p elective laparoscopic cholecystectomy today. In PACU, patient was noted to have increasing abdominal distention, hypotension, and tachycardia. Upon arrival to the ED, patient was hypotensive with systolic BPs in the 90s, and tachycardic. Positive FAST exam and CT ABD/pelvis showing moderate to large volume of hemoperitoneum in the abdomen and pelvis without active extravasation. Patient was typed and crossed for 4 units of blood and is currently receiving 2 units. Patient has been evaluated by cigar packer and grader and general surgery. Labs show Hgb 8.2, WBC 19 K, glucose 284, AST 72, ALT 212, alk phos 153. Discharge Data Consultations 10/19/22 17:26 Consult General Surgery Stat Consult Oxygen Therapy Technician Stat 10/19/22 17:48 ED Decision to Admit Stat 10/19/22 18:57 Consult Oxygen Therapy Technician Routine 10/20/22 10:01 Consult Urology Routine 10/20/22 23:49 Consult Oxygen Therapy Technician Routine 10/21/22 04:52 Burn CD for patient Stat Procedures Performed Operation Date: 10/19/22 19:00 <No data on this case meets the specified criteria> Hospital Course (1) Postoperative hemorrhage: Plan 37-year-old lady with PMH of hypothyroidism, obesity, GERD, migraine presented to the ED 10/19 from [facility] for evaluation of abdominal pain/hypotension/tachycardia after elective laparoscopic cholecystectomy on 10/19/2022. Upon arrival to the ED, patient was found hypotensive with systolic BPs in the 90s and associated tachycardia; CTAP showing moderate to large volume hemoperitoneum in the abdomen and pelvis without active stain extravasation. She is being managed for the following: (1) Postoperative hemorrhagic shock: (2) Status post cholecystectomy: Patient sent to ED 10/19 from [facility] after laparoscopic cholecystectomy. In PACU, patient developed worsening abdominal distention, hypotension, tachycardia. In the ED, positive FAST exam and CT ABD/pelvis showing moderate to large volume of hemoperitoneum in the abdomen and pelvis without active extravasation. At admission: Hb 8.2 (12.4 on 10/15/2022) s/p 2 units PRBC transfusion, Hb 12.9 to 11.4. BP imroving - still soft, still tachycardic. cigar packer and grader and general Sx on board. clear liq per Sx. Being managed in ICU. (3) Leukocytosis: At admisison - WBC 19 K, likely reactive due to surgery/active bleeding WBC trending down, pt afebrile, continue to monitor off of antibiotic. (4) Elevated LFTs: T. bili 0.4, AST 72, ALT 212, alk phos 153 Likely reactive due to recent cholecystectomy Monitor LFTs (5) Hyperglycemia:A1c 5.2; likely complicated by acute stress. (6) Hypothyroidism: Continue home dose levothyroxine DVT PROPHYLAXIS: SCDs due to active postop bleeding Overnight developments 10/20, 9:15 PM Patient complaining of increasing abdominal pain. Patient noted to be tachycardic and febrile. No chest pain. Temperature 37.7, heart rate 130s, SBP 100s Patient unable to take a deep breath because of abdominal pain. CT abdomen pelvis: 1. Stable complex fluid and air collection within the gallbladder fossa. 2. Decreasing complex fluid throughout the abdomen and pelvis. Hemoglobin 7.7 from 11.4 in a.m. lactic acid 1.5 AP Intra-abdominal sepsis secondary to postcholecystectomy fluid collection, hemoperitoneum Worsening anemia NPO CS, Zosyn IVF Dr. George (surgeon on-call) updated of developments. He recommends transfer to tertiary center for possible IR intervention. Transfuse 2 units PRBC to maintain hemoglobin greater than 9 10/21 12AM Notified by RN of patient increase shortness of breath, tachycardia, sensation of throat closing, rash after Zosyn initiated. SBP 90s Heart rate 150s Code purple subsequently called. AP ICU transfer Anaphylactic shock secondary to Zosyn DC Zosyn and add to allergy list Ertapenem in place off Zosyn for possible intra-abdominal sepsis IVF bolus Epinephrine IM Solu-Medrol, Benadryl, Pepcid [facility] initially called for transfer. No ICU beds available. [facility] subsequently called after discussing with patient's . Patient kindly accepted for transfer by Dr. Ragsdale (surgeon on-call) to surgical ICU pending repeat a.m. labs. Total time to prepare this discharge summary was 15 minutes. Text document was generated using [employer] voice recognition software. It may contain grammatical or spelling errors. Kindly contact undersigned for clarification of any documentation item in question.
[2022-10-21] MEDS ORDERED: SODIUM CHLORIDE 0.9% 10ML FLUSH IV ONE (07:12)
[2022-10-21] MEDS ORDERED: EPINEPHrine INJ 1 MG/ML AMP IV ONE (07:12)
[2022-10-21] MEDS ORDERED: ICU Protocol for HYPERglycemia SCH (07:30)
--- NOTE | 2022-10-21 08:48 | XRay Report ---
SINGLE VIEW CHEST CLINICAL HISTORY: Hypoxia FINDINGS: An AP, portable, upright chest radiograph is correlated with chest CT dated 10/19/2022. The cardiomediastinal silhouette is unremarkable. There is dependent atelectasis, right greater than left . Suspect trace pleural effusions. No pneumothorax is seen. The bony thorax is grossly intact. Cholec ystectomy clips are noted in the right upper quadrant. IMPRESSION: Dependent atelectasis and suspect trace pleural effusions. ACT 112: Negative or not required by law. Electronically signed by: Alberto Pastrana M.D. 10/21/2022 8:46 AM
--- NOTE | 2022-10-21 10:51 | Electrocardiogram Report ---
Test Reason : Blood Pressure : / mmHG Vent. Rate : 153 BPM Atrial Rate : 153 BPM P-R Int : 130 ms QRS Dur : 066 ms QT Int : 322 ms P-R-T Axes : 042 047 057 degrees QTc Int : 514 ms Sinus tachycardia Possible Anterior infarct , age undetermined Abnormal ECG When compared with ECG of 19-OCT-2022 16:37, Loss of presordial R wave likely from lead placement Confirmed by Hai Gaston ([id number]) on 10/21/2022 10:51:18 AM Referred By: Provider Outside Confirmed By:Hai Gaston
== END 2022-10-21 07:13 | disposition short-term general hospital (02) | DRG 919 ==
LOC: ED 16:30 → 1E 18:04 → SUATTDRO 18:04 → 1E 18:36 → 2E 10-20 18:02 → 1E 10-20 23:49
DX: E66.9 Obesity, unspecified; R73.9 Hyperglycemia, unspecified; Z90.49 Acquired absence of other specified parts of digestive tract; T81.10XA Postprocedural shock unspecified, initial encounter; E03.9 Hypothyroidism, unspecified; T88.6XXA Anaphylactic reaction due to adverse effect of correct drug or medicament properly administered, initial encounter; K66.1 Hemoperitoneum; Z88.8 Allergy status to other drugs, medicaments and biological substances; D62 Acute posthemorrhagic anemia; D72.829 Elevated white blood cell count, unspecified; R33.9 Retention of urine, unspecified; Z68.35 Body mass index [BMI] 35.0-35.9, adult; Z79.890 Hormone replacement therapy; K21.9 Gastro-esophageal reflux disease without esophagitis; T36.0X5A Adverse effect of penicillins, initial encounter